=== PATIENT | female | born 1960 | race Asian ===

== ENCOUNTER → 2018-05-05 12:01 | Outpatient (CLI) | payer OTHER, SELFPAY | DX: Z23 Encounter for immunization (principal) | CPT/HCPCS: 90471; 90686 ==

== ENCOUNTER → 2019-06-07 08:12 | Outpatient (CLI) | payer OTHER, SELFPAY | DX: Z23 Encounter for immunization (principal) | CPT/HCPCS: 90471; 90686 ==

== ENCOUNTER → 2020-02-27 09:10 | Outpatient (CLI) | payer OTHER, SELFPAY ==
--- NOTE | 2020-02-27 | DI.ECHO.S_ITS ---
[place] +---------+ [facility] +---------+ : : [address] : [address] : : : : [id number] : : : : Phone: [phone]+ Echocardiogram Report + + :Name: MELVI CASH Study Date: 02/27/2020 Height: 62 in : :[facility] Weight: 135 lb : : Gender: Female BSA: 1.6 m2 : :: 1960 Age: 59 yrs BP: 118/64 mmHg: :Reason For Study: Cardiomegaly : :Ordering Physician: WINSTON, : :ALONSO Performed By: Luisa Brown : :Referring: ALONSO FELIX : + + Interpretation Summary 1) Normal left ventricular size, thickness, wall motion, and systolic function (EF 60-65%). 2) Normal right ventricular size and function. 3) No significant valvular abnormalities. 4) No prior Echo available for comparison. Procedure: A two-dimensional transthoracic echocardiogram with color flow and Doppler was performed. The study quality was technically adequate. There is no prior echocardiogram noted for this patient. The heart rate ranged between 62-70 bpm during the study. Left Ventricle: The left ventricle is normal in size and wall thickness. The ejection fraction is estimated to be 60-65%. Left ventricular systolic function is normal without focal wall motion abnormalities. Diastolic parameters suggest probable normal left ventricular diastolic function and normal filling pressures. Right Ventricle: The right ventricle is normal in size and function. Atria: Both atria are normal in size. There is no Doppler evidence for an interatrial shunt. Mitral Valve: The mitral valve is normal in structure and function. There is trace mitral regurgitation. Aortic Valve: The aortic valve is trileaflet. The aortic valve opens well. There is no aortic valve stenosis. No aortic regurgitation is present. Tricuspid Valve: The tricuspid valve is normal in structure and function. There is mild tricuspid regurgitation. The right ventricular systolic pressure is estimated to be at least 27 mmHg based on an estimated right atrial pressure of 3 mm Hg. Pulmonic Valve: The pulmonic valve leaflets are thin and pliable; valve motion is normal. There is no pulmonic valvular regurgitation. Great Vessels: The aortic root is normal size. The ascending aorta is normal in size. The IVC is of normal diameter and collapses greater than 50% with a sniff. This suggests a low right atrial pressure of 3 mm Hg. Pericardium/ Pleura There is no pericardial effusion. There is no pleural effusion. MMode/2D Measurements & Calculations LVIDd: 4.3 cm LVOT diam: 1.9 cm LVIDs: 2.9 cm Ao root diam: 2.5 cm FS: 32.9 % asc Aorta Diam: 2.9 cm EPSS: 0.28 cm Ao Arch Diam (Prox Trans): 2.6 cm IVSd: 0.85 cm LVPWd: 0.73 cm LV valero. diameter/BSA (cm/m^2): 2.7 LV sys. diameter/BSA (cm/m^2): 1.8 LA A2 area: 15.0 cm2 RA long axis: 4.6 cm LA A4 area: 15.8 cm2 RA area: 12.8 cm2 LA length (vol): 4.6 cm RA vol: 30.4 ml LA vol: 43.7 ml RA : 18.8 ml/m2 LA vol index: 27.0 ml/m2 IVC diam: 1.8 cm RVD1 (basal): 2.9 cm TAPSE: 2.2 cm Doppler Measurements & Calculations Ao V2 max: 135.3 cm/sec LVOT Max Kane: 121.5 cm/sec Ao V2 mean: 93.3 cm/sec LV V1 max P.9 mmHg Ao max P.3 mmHg LV V1 VTI: 26.9 cm Ao mean P.0 mmHg JOEL(I,D): 2.6 cm2 Ao V2 VTI: 30.2 cm JOEL(V,D): 2.6 cm2 sev ratio: 0.89 JOEL indexed to BSA (cm^2/m^2): 1.6 MV E max kane: 97.2 cm/sec TR max kane: 245.9 cm/sec MV A max kane: 65.6 cm/sec TR max P.2 mmHg MV E/A: 1.5 PA V2 max: 81.0 cm/sec Med Peak E' Kane: 10.8 cm/sec PA V2 mean: 50.1 cm/sec E/E' med: 9.0 PA mean P.2 mmHg Lat Peak E' Kane: 9.4 cm/sec PA pr(Accel): 5.4 mmHg E/E' lat: 10.4 E/e' average: 9.7 MV dec time: 0.17 sec SV(LVOT): 79.3 ml Reading Physician:06:13 PM
--- NOTE | 2020-02-27 09:59 | DI.CT.S_ITS ---
PROCEDURE: CT CHEST WO CON INDICATIONS: Cardiomegaly TECHNIQUE: Noncontrast 5 mm thick sections acquired from the pulmonary apices to the posterior costophrenic angles. 1 mm lung window, 5 mm thick coronal and sagittal and 7 mm axial MIP reformats were then acquired. For radiation dose reduction, the following was used: automated exposure control, adjustment of mA and/or kV according to patient size. COMPARISON: [facility], ECHO DOPPLER COMPLETE, 02/27/2020, 9:21. FINDINGS: Image quality: Excellent. Lungs and pleura: Subpleural scars or atelectasis in right middle lobe and lingula. No acute air space opacities. No pleural effusions or pneumothorax. Central and peripheral airways are patent and normal in caliber. Mediastinum: Heart size is normal. No pericardial effusion. No mediastinal adenopathy by size criteria. Thoracic aorta and central pulmonary arteries are normal in size. Esophagus is normal in caliber. No hiatal hernia. Bones and chest wall: No suspicious bony lesions. No vertebral body compression fractures. No axillary or supraclavicular adenopathy by size criteria. Thyroid gland is normal. Abdomen: Visualized upper abdominal solid organs and bowel loops appear normal in the absence of contrast. IMPRESSION: 1. No acute abnormalities are seen on noncontrast enhanced CT of the chest. 2. Heart size is normal. 3. Right middle lobe and lingular scars and atelectasis. Dictated by: Laura Tolbert M.D. on 02/27/2020 at 11:50 Approved by: Laura Tolbert M.D. on 02/28/2020 at 9:06
== END ==
PROVIDERS: PCP Family Medicine; Referring Provider Internal Medicine Cardiovascular Disease; Visit Provider Internal Medicine Cardiovascular Disease
DX: I51.7 Cardiomegaly (principal); I07.1 Rheumatic tricuspid insufficiency; R22.2 Localized swelling, mass and lump, trunk; J98.4 Other disorders of lung; J98.11 Atelectasis
CPT/HCPCS: 71250; 93306

== ENCOUNTER → 2020-06-18 | Outpatient (CLI) | payer OTHER, SELFPAY | PROVIDERS: PCP Family Medicine; Referring Provider Internal Medicine; Visit Provider Internal Medicine | DX: Z23 Encounter for immunization (principal) | CPT/HCPCS: 90471; 90686 ==

== ENCOUNTER → 2020-06-20 16:53 | Outpatient (CLI) | payer OTHER, SELFPAY ==
--- NOTE | 2020-06-20 | DI.MG.S_ITS ---
BILATERAL DIGITAL SCREENING MAMMOGRAM 3D/2D WITH CAD: 06/20/2020 CLINICAL: Routine screening. Family history of breast cancer. Comparison is made to exams dated: 01/20/2019 mammogram, 11/16/2018 mammogram, and 01/10/2015 mammogram - [facility]. The tissue of both breasts is heterogeneously dense. This may lower the sensitivity of mammography. Current study was also evaluated with a Computer Aided Detection (CAD) system. There is a biopsy clip in the left breast. No significant masses, calcifications, or other findings are seen in either breast. There has been no significant interval change. IMPRESSION: NEGATIVE There is no mammographic evidence of malignancy. A 1 year screening mammogram is recommended. This exam was interpreted at Station ID: [id number]. NOTE: For mammograms, a report in lay terms will be sent to the patient. Approximately 15% of breast malignancies will not be visualized mammographically. In the management of a palpable breast mass, a negative mammogram must not discourage biopsy of a clinically suspicious lesion. Electronically Signed By: Eloy barraza/bc:06/21/2020 07:49:13 letter sent: Normal Exam ACR BI-RADS Category 1: Negative 3341F
== END ==
PROVIDERS: PCP Family Medicine; Referring Provider Family Medicine; Visit Provider Family Medicine
DX: Z12.31 Encounter for screening mammogram for malignant neoplasm of breast (principal)
CPT/HCPCS: 77063; 77067

== ENCOUNTER → 2020-08-08 14:35 | Outpatient (CLI) | payer OTHER, SELFPAY ==
[2020-08-08] MEDS: COVID-19 VACC(MODERNA-1)/PF 100 MCG/0.5 ML VIAL IM (14:41)
== END ==
PROVIDERS: PCP Family Medicine; Visit Provider Internal Medicine
DX: Z23 Encounter for immunization (principal)
CPT/HCPCS: 0011A; 91301

== ENCOUNTER → 2020-09-04 12:15 | Outpatient (CLI) | payer OTHER, SELFPAY ==
[2020-09-04] MEDS: COVID-19 VACC #2, MRNA(MOD) 100 MCG/0.5 ML VIAL IM (12:20)
== END ==
PROVIDERS: PCP Family Medicine; Visit Provider Internal Medicine
DX: Z23 Encounter for immunization (principal)
CPT/HCPCS: 0012A; 91301

== ENCOUNTER → 2021-07-01 15:13 | Outpatient (CLI) | payer OTHER, SELFPAY ==
--- NOTE | 2021-07-01 15:14 | DI.MG.S_ITS ---
BILATERAL DIGITAL SCREENING MAMMOGRAM 3D/2D WITH CAD: 07/01/2021 CLINICAL: Routine screening. Family history of breast cancer. Comparison is made to exams dated: 06/20/2020 mammogram - [facility], 01/20/2019 mammogram, and 11/16/2018 mammogram - [facility]. The tissue of both breasts is heterogeneously dense. This may lower the sensitivity of mammography. Current study was also evaluated with a Computer Aided Detection (CAD) system. There is a biopsy clip in the left breast. No significant masses, calcifications, or other findings are seen in either breast. There has been no significant interval change. IMPRESSION: NEGATIVE There is no mammographic evidence of malignancy. A 1 year screening mammogram is recommended. This exam was interpreted at Station ID: [id number]. NOTE: For mammograms, a report in lay terms will be sent to the patient. Approximately 15% of breast malignancies will not be visualized mammographically. In the management of a palpable breast mass, a negative mammogram must not discourage biopsy of a clinically suspicious lesion. Electronically Signed By: Hayden fu/bc:07/02/2021 09:33:20 letter sent: Normal Exam ACR BI-RADS Category 1: Negative 3341F
== END ==
PROVIDERS: PCP Family Medicine; Referring Provider Family Medicine; Visit Provider Family Medicine
DX: Z12.31 Encounter for screening mammogram for malignant neoplasm of breast (principal); Z80.3 Family history of malignant neoplasm of breast
CPT/HCPCS: 77063; 77067

== ENCOUNTER → 2021-07-03 13:30 | Outpatient (CLI) | payer OTHER, SELFPAY | PROVIDERS: PCP Family Medicine; Referring Provider Internal Medicine; Visit Provider Internal Medicine | DX: Z23 Encounter for immunization (principal) | CPT/HCPCS: 90471; 90686 ==

== ENCOUNTER → 2022-04-24 15:30 | Outpatient (CLI) | payer OTHER, SELFPAY | PROVIDERS: PCP Family Medicine; Visit Provider Nurse Practitioner Family | DX: J02.9 Acute pharyngitis, unspecified (principal) | CPT/HCPCS: 87070 ==

== ENCOUNTER 2022-04-26 03:50 | Inpatient (IN) | payer OTHER, SELFPAY ==
[2022-04-26] VITALS (60 sets, daily range): BP systolic 70–201; BP diastolic 45–126; PULSE 65–130; RESP 13–49; TEMP 36.7–37.8; O2SAT 92–100; BMI 23.8; BMI 24.3
--- NOTE | 2022-04-26 04:09 | DI.CT.S_ITS ---
PROCEDURE: CT SOFT TISSUE NECK W CON INDICATIONS: swelling throat/tongue TECHNIQUE: After the administration of intravenous contrast, 3.0 mm axial sections acquired from the sella to the aortic arch. Additional oblique axial 3.0 mm sections acquired through the pharynx. 3 mm thick coronal and sagittal reformats were generated. For radiation dose reduction, the following was used: automated exposure control. COMPARISON: None. FINDINGS: Image quality: Excellent. Lymph nodes: Borderline prominent lymph nodes are seen, which are more prominent on the left than on the right. The largest solitary lymph node is seen on the left at level 2A and measures 12 x 8 mm. Vessels: Visualized vasculature appears patent. Neck spaces: A there is prominent swelling of the left oropharynx, which is centered within the left peritonsillar region. Several locules of fluid can be seen, with the largest measuring up to 3 cm. There is airway narrowing. There is effacement of the left piriform sinus. Generalized mucosal swelling can be seen within the pharynx. Glands: The parotid and submandibular glands appear normal. Thyroid gland is not definitely seen. Miscellaneous: Visualized brain and orbits appear normal. Lung apices appear clear. Superficial soft tissues appear normal. Bones: No suspicious bony lesions. Visualized sinuses and mastoids appear unremarkable. IMPRESSION: Complex left pharyngeal abscess, which is centered within the left peritonsillar region. The largest locule measures 3 cm. Generalized mucosal swelling can be seen. Thyroid not well seen. Please correlate with prior treatment history. Note: No significant discrepancy from the preliminary report. Dictated by: Christian Winn M.D. on 04/26/2022 at 7:24 Approved by: Christian Winn M.D. on 04/26/2022 at 7:33
--- NOTE | 2022-04-26 04:12 | ED.GENADULT ---
HPI - General Adult <Reena Ross DO - Last Filed: 04/27/22 05:44> General Chief complaint: Upper Respiratory Symptoms Stated complaint: swollen tongue/tonsils Time Seen by Provider: 04/26/22 04:04 Source: patient Mode of arrival: Ambulatory Limitations: no limitations History of Present Illness HPI narrative: This is a 62-year-old female with history of dyslipidemia and hypothyroidism with complaint of swelling of her tongue and throat starting WednesdayApril 22 and slowly progressing and getting significantly worse Wednesday and into Wednesday. Patient states her voice became muffled on Wednesday. She denies fevers or chills, she has had difficulty swallowing her secretions, patient states she has swelling of the tongue as well as the back of her oropharynx she does not feel tight lower in the throat. She denies pain. She has not had any vomiting but has had nausea, no chest pain or shortness of breath currently. Patient states that she had a similar episode happen in her teens she was given antibiotics and improved. She states it was not quite as bad as this she does not recall what it was called. She denies any recent surgeries. She is allergic to cephalexin. She denies any new medications, no new exposures or known food or environmental allergies. She is accompanied by her spouse. Related Data Home Medications Medication Instructions Recorded Confirmed conjugated estrogens 0.625 mg/gram 1 applic vaginal Q3D 04/26/22 04/26/22 vaginal cream (Premarin) fluticasone propionate 50 1 spray intranasal DAILY PRN 04/26/22 04/26/22 mcg/actuation nasal Congestion spray,suspension levothyroxine 88 mcg tablet 88 mcg PO DAILY 04/26/22 04/26/22 (Synthroid) loratadine 10 mg tablet 10 mg PO DAILY 04/26/22 04/26/22 rosuvastatin 5 mg tablet 5 mg PO DAILY 04/26/22 04/26/22 Allergies Allergy/AdvReac Type Severity Reaction Status Date / Time cephalexin [From Keflex] AdvReac Mild Verified 04/24/22 15:32 Review of Systems <Reena Ross DO - Last Filed: 04/27/22 05:44> Review of Systems ROS Unobtainable: All systems reviewed & are unremarkable except as noted in HPI and below Patient History <Reena Ross DO - Last Filed: 04/27/22 05:44> Social History household members: spouse Smoking Status: Never smoker alcohol intake: current Smoking Status: Never smoker alcohol intake frequency: 0-2 drinks per day Substance Use Type: does not use Exam <Reena Ross DO - Last Filed: 04/27/22 05:44> Narrative Exam Narrative: GEN: well nourished, well appearing female, alert and oriented x 3, patient appears to be in [id number] distress. HEENT: Atraumatic, pupils are equal round reactive to light, extraocular movements are intact, nares are clear, TMs are clear with no fluid, there is no conjunctival pallor. Patient has swelling of posterior oropharynx difficult to visualize her uvula but appears midline, slightly muffled voice and swelling of the tongue, no lip facial swelling otherwise. Normal range of motion neck. HEART: Regular rate and rhythm without murmur, clicks, rubs. No carotid bruits, pulses are equal in upper and lower extremities LUNGS:Lungs clear to auscultation, no wheezes, rales, crackles, chest moves symmetrically ABD:bowel sounds normal, soft, non-tender, no guarding, rebound, rigidity, no masses noted, no hepatosplenomegaly :No CVA tenderness MSCL: Non-tender, no muscle atrophy, muscles strength 5/5 upper and lower extremities, full range of motion, normal gait NEURO:CN 2-12 intact, sensation normal SKIN: No rash, erythema or other skin changes Initial Vital Signs Initial Vital Signs: Vital Signs Temperature 100.1 F H 04/26/22 03:55 Pulse Rate 114 H 04/26/22 03:55 Respiratory Rate 20 04/26/22 03:55 Blood Pressure 152/68 H 04/26/22 03:55 Pulse Oximetry 100 04/26/22 03:55 Oxygen Delivery Method 04/26/22 03:55 <Khloe Mi MD - Last Filed: 04/26/22 18:54> Initial Vital Signs Initial Vital Signs: Vital Signs Temperature 100.1 F H 04/26/22 03:55 Pulse Rate 114 H 04/26/22 03:55 Respiratory Rate 20 04/26/22 03:55 Blood Pressure 152/68 H 04/26/22 03:55 Pulse Oximetry 100 04/26/22 03:55 Oxygen Delivery Method 04/26/22 03:55 Course <Reena Ross, DO - Last Filed: 04/27/22 05:44> Orders Ordered: Chlorhexidine Gluconate (Chlorhexidine Gluconate 15 Ml Cup) 15 ml PO Q6HR BHARATI Last Admin: 04/27/22 00:00 Dose: 15 ml Documented By: Admin: 04/26/22 19:55 Dose: 15 ml Documented By: RF Chlorhexidine Gluconate (Chlorhexidine Gluconate 15 Ml Cup) 15 ml PO Q6HR BHARATI Famotidine (Famotidine 20 Mg/2 Ml Vial) 20 mg IV BID BHARATI Last Admin: 04/26/22 21:16 Dose: 20 mg Documented By: RF Heparin Sodium (Porcine) (Heparin 5,000 Unit/Ml Vial) 5,000 unit SUBCUT BID BHARATI Last Admin: 04/26/22 21:16 Dose: 5,000 unit Documented By: RF Hydromorphone HCl (Hydromorphone 0.5 Mg Inj) 0.5 mg IV Q15MIN PRN PRN Reason: Pain, Last Admin: 04/26/22 08:17 Dose: 0.5 mg Documented By: LAINA Propofol (Propofol) 1,000 mg in 100 mls @ 1.769 mls/hr IV TITRATE BHARATI; Protocol Last Titration: 04/27/22 03:03 Dose: 10 mcg/kg/min, 3.538 mls/hr Documented By: Titration: 04/26/22 20:00 Dose: 5 mcg/kg/min, 1.769 mls/hr Documented By: Titration: 04/26/22 16:52 Dose: 20 mcg/kg/min, 7.076 mls/hr Documented By: Admin: 04/26/22 16:49 Dose: 5 mcg/kg/min, 1.769 mls/hr Documented By: CW Fentanyl 1,000 mcg/ Dextrose 250 mls @ 10.319 mls/hr IV TITRATE BHARATI; Protocol Last Titration: 04/26/22 20:00 Dose: 0.5 mcg/kg/hr, 7.371 mls/hr Documented By: Admin: 04/26/22 16:55 Dose: 0.7 mcg/kg/hr, 10.319 mls/hr Documented By: BYRON Clindamycin Phosphate (Cleocin) 900 mg in 50 mls @ 50 mls/hr IV Q8H [facility] Last Infusion: 04/27/22 01:00 Dose: 0 mls/hr Documented By: Admin: 04/27/22 00:00 Dose: 50 mls/hr Documented By: Infusion: 04/26/22 19:00 Dose: 0 mls/hr Documented By: Admin: 04/26/22 17:42 Dose: 50 mls/hr Documented By: BYRON Meropenem 2 gm/ Sodium (Chloride) 100 mls @ 200 mls/hr IV Q8H [facility] Last Infusion: 04/27/22 00:51 Dose: 0 mls/hr Documented By: Admin: 04/27/22 00:21 Dose: 200 mls/hr Documented By: Infusion: 04/26/22 17:33 Dose: 200 mls/hr Documented By: Admin: 04/26/22 17:03 Dose: 200 mls/hr Documented By: BYRON Dexamethasone 20 mg/ Sodium (Chloride) 52 mls @ 208 mls/hr IV DAILY [facility] Daptomycin 480 mg/ Sodium (Chloride) 50 mls @ 100 mls/hr IV Q24H [facility] Last Admin: 04/26/22 21:50 Dose: 100 mls/hr Documented By: PAZ POTASSIUM CHLORIDE IN WATER (Potassium Cl 10 Meq/100 Ml Elvira) 10 meq in 100 mls @ 100 mls/hr IV Q1H [facility] Stop: 04/27/22 07:59 Last Admin: 04/27/22 05:10 Dose: 100 mls/hr Documented By: Infusion: 04/27/22 05:08 Dose: 100 mls/hr Documented By: Admin: 04/27/22 04:08 Dose: 100 mls/hr Documented By: PAZ Naloxone HCl (Naloxone 0.4 Mg/Ml Vial) 0.1 mg IV Q2MIN PRN PRN Reason: Opiate Reversal Discontinued Medications Dexamethasone (Dexamethasone 10 Mg/Ml Vial) 10 mg IV NOW ONE Stop: 04/26/22 04:10 Last Admin: 04/26/22 04:17 Dose: 10 mg Documented By: ANA Dexamethasone (Dexamethasone 10 Mg/Ml Vial) 10 mg IV NOW ONE Stop: 04/26/22 06:16 Last Admin: 04/26/22 06:20 Dose: 10 mg Documented By: JAN Diphenhydramine HCl (Diphenhydramine 50 Mg/Ml Vial) 25 mg IV NOW ONE Stop: 04/26/22 04:53 Last Admin: 04/26/22 04:55 Dose: 25 mg Documented By: JAN Epinephrine (Racepinephrine 0.5 Ml Neb) 0.5 ml INH NOW ONE Stop: 04/26/22 05:29 Last Admin: 04/26/22 05:30 Dose: 0.5 ml Documented By: KENIA Epinephrine HCl (Epinephrine 1 Mg/Ml) 0.5 mg IM NOW ONE Stop: 04/26/22 04:19 Last Admin: 04/26/22 04:25 Dose: 0.5 mg Documented By: SELINA Clindamycin Phosphate (Cleocin) 900 mg in 50 mls @ 50 mls/hr IV NOW ONE Stop: 04/26/22 05:11 Last Infusion: 04/26/22 05:47 Dose: 0 mls/hr Documented By: Admin: 04/26/22 04:18 Dose: 50 mls/hr Documented By: ANA Sodium Chloride (Normal Saline 0.9%) 1,000 mls @ 1,000 mls/hr IV BOLUS ONE Stop: 04/26/22 05:11 Last Infusion: 04/26/22 06:35 Dose: 0 mls/hr Documented By: Admin: 04/26/22 04:17 Dose: 1,000 mls/hr Documented By: ANA Sodium Chloride (Normal Saline 0.9%) 1,000 mls @ 1,000 mls/hr IV BOLUS ONE Stop: 04/26/22 05:41 Last Infusion: 04/26/22 07:58 Dose: 0 mls/hr Documented By: Admin: 04/26/22 06:21 Dose: 1,000 mls/hr Documented By: JAN Meropenem 500 mg/ Sodium (Chloride) 100 mls @ 200 mls/hr IV NOW ONE Stop: 04/26/22 07:17 Last Infusion: 04/26/22 08:30 Dose: 0 mls/hr Documented By: Admin: 04/26/22 07:59 Dose: 200 mls/hr Documented By: LAINA Sodium Chloride (Normal Saline 0.9%) 1,000 mls @ 150 mls/hr IV BOLUS ONE Stop: 04/26/22 14:30 Last Infusion: 04/26/22 14:46 Dose: 0 mls/hr Documented By: Admin: 04/26/22 07:59 Dose: 150 mls/hr Documented By: RLS Lactated Ringer's (Lactated Ringers) 1,000 mls @ 75 mls/hr IV CONT BHARATI Stop: 04/27/22 04:44 Last Admin: 04/26/22 20:53 Dose: 75 mls/hr Documented By: Infusion: 04/26/22 20:53 Dose: 75 mls/hr Documented By: Admin: 04/26/22 16:57 Dose: 75 mls/hr Documented By: BYRON Sodium Chloride (Normal Saline 0.9%) 1,000 mls @ 1,000 mls/hr IV BOLUS ONE Stop: 04/26/22 20:50 Last Infusion: 04/26/22 21:17 Dose: 0 mls/hr Documented By: Admin: 04/26/22 19:55 Dose: 1,000 mls/hr Documented By: RF Lactated Ringer's (Lactated Ringers) 1,000 mls @ 1,000 mls/hr IV BOLUS ONE Stop: 04/27/22 02:34 Last Infusion: 04/27/22 02:40 Dose: 0 mls/hr Documented By: Admin: 04/27/22 01:40 Dose: 1,000 mls/hr Documented By: RF Lidocaine/Epinephrine (Lidocaine 2% W/Epi Inj) 5 ml INJ NOW ONE Stop: 04/26/22 16:07 Last Admin: 04/26/22 16:07 Dose: 5 ml Documented By: GLENN Methylprednisolone (Methylprednisolone 125 Mg/2 Ml Vial) 125 mg IV NOW ONE Stop: 04/27/22 01:38 Last Admin: 04/27/22 01:44 Dose: 125 mg Documented By: RF Ondansetron HCl (Ondansetron 4 Mg/2 Ml Inj) 4 mg IV NOW ONE Stop: 04/26/22 08:21 Last Admin: 04/26/22 08:23 Dose: 4 mg Documented By: LAINA Reevaluation(s) Reevaluation #1: Recheck, patient states no worsening but not significantly improved. Reviewed prelim findings for CT and aware she may require intubation and dependent on findings potentially transfer. is at bedside. Consultations Consultation #1: Dr. Roberto Figueredo, ENT, recommends 20mg dexamethasone total given. Observation unless rapid improvement and worsening intubation. He asks to be recontacted if staying in hospital. Ct pending still but obvious swelling and airway impingement discussed. Discussed I do not plan to discharge patient home today. Time: 06:02 Consultation #2: Recontacted Dr. Figueredo, with ENT results. Multi loculated peritonsillar abscess on night read extending from nasopharynx to the vallecula with airway impingement on the left. Discussed patient is not handling secretions and although moment stable is high risk for decompensation plan for admission and ENT is consulted. Time: 06:40 Vital Signs Vital signs: Vital Signs - 8 hr 04/26/22 11:00 04/26/22 11:00 04/26/22 11:30 Pulse Rate 103 H Respiratory Rate 23 Blood Pressure 125/59 L 115/56 L Pulse Oximetry 96 Oxygen Delivery Method Room Air 04/26/22 11:30 04/26/22 12:00 04/26/22 12:00 Pulse Rate 96 H 97 H Respiratory Rate 14 13 Blood Pressure 112/58 L Pulse Oximetry 94 92 Oxygen Delivery Method Room Air Room Air 04/26/22 12:30 04/26/22 12:30 04/26/22 13:00 Pulse Rate 104 H Respiratory Rate 25 H Blood Pressure 137/61 126/61 Pulse Oximetry 97 Oxygen Delivery Method Room Air 04/26/22 13:00 04/26/22 13:07 04/26/22 13:12 Pulse Rate 108 H 110 H Respiratory Rate 33 H 41 H Blood Pressure 134/63 Pulse Oximetry 96 96 Oxygen Delivery Method Room Air 04/26/22 13:12 04/26/22 13:30 04/26/22 13:30 Pulse Rate 112 H 105 H Respiratory Rate 30 H 33 H Blood Pressure 120/59 L Pulse Oximetry 97 97 Oxygen Delivery Method 04/26/22 14:00 04/26/22 14:00 04/26/22 14:30 Pulse Rate 101 H 109 H Respiratory Rate 26 H 49 H Blood Pressure 112/64 Pulse Oximetry 92 Oxygen Delivery Method Room Air 04/26/22 14:31 04/26/22 14:31 Pulse Rate 107 H Respiratory Rate 35 H Blood Pressure 106/64 Pulse Oximetry Oxygen Delivery Method <Khloe Mi MD - Last Filed: 04/26/22 18:54> Orders Ordered: Chlorhexidine Gluconate (Chlorhexidine Gluconate 15 Ml Cup) 15 ml PO Q6HR [facility]ARATI Last Admin: 04/27/22 00:00 Dose: 15 ml Documented By: Admin: 04/26/22 19:55 Dose: 15 ml Documented By: RF Chlorhexidine Gluconate (Chlorhexidine Gluconate 15 Ml Cup) 15 ml PO Q6HR [facility] Famotidine (Famotidine 20 Mg/2 Ml Vial) 20 mg IV BID BHARATI Last Admin: 04/26/22 21:16 Dose: 20 mg Documented By: RF Heparin Sodium (Porcine) (Heparin 5,000 Unit/Ml Vial) 5,000 unit SUBCUT BID BHARATI Last Admin: 04/26/22 21:16 Dose: 5,000 unit Documented By: RF Hydromorphone HCl (Hydromorphone 0.5 Mg Inj) 0.5 mg IV Q15MIN PRN PRN Reason: Pain, Last Admin: 04/26/22 08:17 Dose: 0.5 mg Documented By: LAINA Propofol (Propofol) 1,000 mg in 100 mls @ 1.769 mls/hr IV TITRATE BHARATI; Protocol Last Titration: 04/27/22 03:03 Dose: 10 mcg/kg/min, 3.538 mls/hr Documented By: Titration: 04/26/22 20:00 Dose: 5 mcg/kg/min, 1.769 mls/hr Documented By: Titration: 04/26/22 16:52 Dose: 20 mcg/kg/min, 7.076 mls/hr Documented By: Admin: 04/26/22 16:49 Dose: 5 mcg/kg/min, 1.769 mls/hr Documented By: BYRON Fentanyl 1,000 mcg/ Dextrose 250 mls @ 10.319 mls/hr IV TITRATE BHARATI; Protocol Last Titration: 04/26/22 20:00 Dose: 0.5 mcg/kg/hr, 7.371 mls/hr Documented By: Admin: 04/26/22 16:55 Dose: 0.7 mcg/kg/hr, 10.319 mls/hr Documented By: BYRON Clindamycin Phosphate (Cleocin) 900 mg in 50 mls @ 50 mls/hr IV Q8H [facility] Last Infusion: 04/27/22 01:00 Dose: 0 mls/hr Documented By: Admin: 04/27/22 00:00 Dose: 50 mls/hr Documented By: Infusion: 04/26/22 19:00 Dose: 0 mls/hr Documented By: Admin: 04/26/22 17:42 Dose: 50 mls/hr Documented By: BYRON Meropenem 2 gm/ Sodium (Chloride) 100 mls @ 200 mls/hr IV Q8H [facility] Last Infusion: 04/27/22 00:51 Dose: 0 mls/hr Documented By: Admin: 04/27/22 00:21 Dose: 200 mls/hr Documented By: Infusion: 04/26/22 17:33 Dose: 200 mls/hr Documented By: Admin: 04/26/22 17:03 Dose: 200 mls/hr Documented By: BYRON Dexamethasone 20 mg/ Sodium (Chloride) 52 mls @ 208 mls/hr IV DAILY [facility] Daptomycin 480 mg/ Sodium (Chloride) 50 mls @ 100 mls/hr IV Q24H [facility] Last Admin: 04/26/22 21:50 Dose: 100 mls/hr Documented By: PAZ POTASSIUM CHLORIDE IN WATER (Potassium Cl 10 Meq/100 Ml Elvira) 10 meq in 100 mls @ 100 mls/hr IV Q1H [facility] Stop: 04/27/22 07:59 Last Admin: 04/27/22 05:10 Dose: 100 mls/hr Documented By: Infusion: 04/27/22 05:08 Dose: 100 mls/hr Documented By: Admin: 04/27/22 04:08 Dose: 100 mls/hr Documented By: PAZ Naloxone HCl (Naloxone 0.4 Mg/Ml Vial) 0.1 mg IV Q2MIN PRN PRN Reason: Opiate Reversal Discontinued Medications Dexamethasone (Dexamethasone 10 Mg/Ml Vial) 10 mg IV NOW ONE Stop: 04/26/22 04:10 Last Admin: 04/26/22 04:17 Dose: 10 mg Documented By: ANA Dexamethasone (Dexamethasone 10 Mg/Ml Vial) 10 mg IV NOW ONE Stop: 04/26/22 06:16 Last Admin: 04/26/22 06:20 Dose: 10 mg Documented By: JAN Diphenhydramine HCl (Diphenhydramine 50 Mg/Ml Vial) 25 mg IV NOW ONE Stop: 04/26/22 04:53 Last Admin: 04/26/22 04:55 Dose: 25 mg Documented By: JAN Epinephrine (Racepinephrine 0.5 Ml Neb) 0.5 ml INH NOW ONE Stop: 04/26/22 05:29 Last Admin: 04/26/22 05:30 Dose: 0.5 ml Documented By: KENIA Epinephrine HCl (Epinephrine 1 Mg/Ml) 0.5 mg IM NOW ONE Stop: 04/26/22 04:19 Last Admin: 04/26/22 04:25 Dose: 0.5 mg Documented By: SELINA Clindamycin Phosphate (Cleocin) 900 mg in 50 mls @ 50 mls/hr IV NOW ONE Stop: 04/26/22 05:11 Last Infusion: 04/26/22 05:47 Dose: 0 mls/hr Documented By: Admin: 04/26/22 04:18 Dose: 50 mls/hr Documented By: ANA Sodium Chloride (Normal Saline 0.9%) 1,000 mls @ 1,000 mls/hr IV BOLUS ONE Stop: 04/26/22 05:11 Last Infusion: 04/26/22 06:35 Dose: 0 mls/hr Documented By: Admin: 04/26/22 04:17 Dose: 1,000 mls/hr Documented By: ANA Sodium Chloride (Normal Saline 0.9%) 1,000 mls @ 1,000 mls/hr IV BOLUS ONE Stop: 04/26/22 05:41 Last Infusion: 04/26/22 07:58 Dose: 0 mls/hr Documented By: Admin: 04/26/22 06:21 Dose: 1,000 mls/hr Documented By: JAN Meropenem 500 mg/ Sodium (Chloride) 100 mls @ 200 mls/hr IV NOW ONE Stop: 04/26/22 07:17 Last Infusion: 04/26/22 08:30 Dose: 0 mls/hr Documented By: Admin: 04/26/22 07:59 Dose: 200 mls/hr Documented By: LAINA Sodium Chloride (Normal Saline 0.9%) 1,000 mls @ 150 mls/hr IV BOLUS ONE Stop: 04/26/22 14:30 Last Infusion: 04/26/22 14:46 Dose: 0 mls/hr Documented By: Admin: 04/26/22 07:59 Dose: 150 mls/hr Documented By: LAINA Lactated Ringer's (Lactated Ringers) 1,000 mls @ 75 mls/hr IV CONT BHARATI Stop: 04/27/22 04:44 Last Admin: 04/26/22 20:53 Dose: 75 mls/hr Documented By: Infusion: 04/26/22 20:53 Dose: 75 mls/hr Documented By: Admin: 04/26/22 16:57 Dose: 75 mls/hr Documented By: BYRON Sodium Chloride (Normal Saline 0.9%) 1,000 mls @ 1,000 mls/hr IV BOLUS ONE Stop: 04/26/22 20:50 Last Infusion: 04/26/22 21:17 Dose: 0 mls/hr Documented By: Admin: 04/26/22 19:55 Dose: 1,000 mls/hr Documented By: PAZ Lactated Ringer's (Lactated Ringers) 1,000 mls @ 1,000 mls/hr IV BOLUS ONE Stop: 04/27/22 02:34 Last Infusion: 04/27/22 02:40 Dose: 0 mls/hr Documented By: Admin: 04/27/22 01:40 Dose: 1,000 mls/hr Documented By: PAZ Lidocaine/Epinephrine (Lidocaine 2% W/Epi Inj) 5 ml INJ NOW ONE Stop: 04/26/22 16:07 Last Admin: 04/26/22 16:07 Dose: 5 ml Documented By: GLENN Methylprednisolone (Methylprednisolone 125 Mg/2 Ml Vial) 125 mg IV NOW ONE Stop: 04/27/22 01:38 Last Admin: 04/27/22 01:44 Dose: 125 mg Documented By: PAZ Ondansetron HCl (Ondansetron 4 Mg/2 Ml Inj) 4 mg IV NOW ONE Stop: 04/26/22 08:21 Last Admin: 04/26/22 08:23 Dose: 4 mg Documented By: LAINA Vital Signs Vital signs: Vital Signs - 8 hr 04/26/22 11:00 04/26/22 11:00 04/26/22 11:30 Pulse Rate 103 H Respiratory Rate 23 Blood Pressure 125/59 L 115/56 L Pulse Oximetry 96 Oxygen Delivery Method Room Air 04/26/22 11:30 04/26/22 12:00 04/26/22 12:00 Pulse Rate 96 H 97 H Respiratory Rate 14 13 Blood Pressure 112/58 L Pulse Oximetry 94 92 Oxygen Delivery Method Room Air Room Air 04/26/22 12:30 04/26/22 12:30 04/26/22 13:00 Pulse Rate 104 H Respiratory Rate 25 H Blood Pressure 137/61 126/61 Pulse Oximetry 97 Oxygen Delivery Method Room Air 04/26/22 13:00 04/26/22 13:07 04/26/22 13:12 Pulse Rate 108 H 110 H Respiratory Rate 33 H 41 H Blood Pressure 134/63 Pulse Oximetry 96 96 Oxygen Delivery Method Room Air 04/26/22 13:12 04/26/22 13:30 04/26/22 13:30 Pulse Rate 112 H 105 H Respiratory Rate 30 H 33 H Blood Pressure 120/59 L Pulse Oximetry 97 97 Oxygen Delivery Method 04/26/22 14:00 04/26/22 14:00 04/26/22 14:30 Pulse Rate 101 H 109 H Respiratory Rate 26 H 49 H Blood Pressure 112/64 Pulse Oximetry 92 Oxygen Delivery Method Room Air 04/26/22 14:31 04/26/22 14:31 Pulse Rate 107 H Respiratory Rate 35 H Blood Pressure 106/64 Pulse Oximetry Oxygen Delivery Method Medical Decision Making <Reena Ross, DO - Last Filed: 04/27/22 05:44> Lab Data Result diagrams: 04/27/22 02:56 04/27/22 02:56 Labs: Lab Results 04/26/22 04/26/22 04/26/22 Range/Units 04:00 04:08 04:08 WBC 21.3 H (4.5-11.0) X10^3/uL RBC 4.16 (4.0-5.2) X10^6/uL Hgb 12.5 (12.0-16.0) g/dL Hct 36.5 (36-46) % MCV 87.9 (80-100) fL MCH 30.0 (26-34) PG MCHC 34.1 (30-36) % RDW 12.9 (11.6-14.8) % Plt Count 227 (150-400) X10^3/uL Neut % (Auto) Not Reportable Lymph % (Auto) Not Reportable [place] % (Auto) Not Reportable Eos % (Auto) Not Reportable Baso % (Auto) Not Reportable Lymph # (Auto) Not Reportable [place] # (Auto) Not Reportable Baso # (Auto) Not Reportable Total Counted 100 Seg Neutrophils % 87.0 H (38-70) % Lymphocytes % (Manual) 5.0 L (25-45) % Atypical Lymphs % 2.0 H ( - 0) % Monocytes % (Manual) 6.0 (2-11) % Neutrophils # (Manual) [id number] H (0249-5628) /uL RBC Morphology Normal morphology Sodium 126 L (137-145) mmol/L Potassium 3.8 (3.4-5.1) mmol/L Chloride 91 L (98-107) mmol/L Carbon Dioxide 24 (22-32) mmol/L BUN 6 L (7-17) mg/dL Creatinine 0.45 L (0.52-1.04) mg/dL Estimated GFR > 60 (>60) mL/min BUN/Creatinine Ratio 13.3 (6-22) Glucose 153 H (80-110) mg/dL Lactate (0.7-2.1) mmol/L Calcium 8.9 (8.4-10.2) mg/dL Total Bilirubin 1.2 (0.2-1.3) mg/dL AST 28 (14-36) IU/L ALT 33 (<35) IU/L Alkaline Phosphatase 100 (38-126) U/L Total Protein 9.0 H (6.3-8.2) g/dL Albumin 4.6 (3.5-5.0) g/dL Globulin 4.4 H (1.7-4.1) g/dL Albumin/Globulin Ratio 1.0 (1.0-2.8) Lipase 73 (23-300) U/L Procalcitonin (<0.5) ng/mL SARS-CoV-2 (PCR) Negative (Negative) 04/26/22 04/26/22 Range/Units 04:08 04:08 WBC (4.5-11.0) X10^3/uL RBC (4.0-5.2) X10^6/uL Hgb (12.0-16.0) g/dL Hct (36-46) % MCV (80-100) fL MCH (26-34) PG MCHC (30-36) % RDW (11.6-14.8) % Plt Count (150-400) X10^3/uL Neut % (Auto) Lymph % (Auto) [place] % (Auto) Eos % (Auto) Baso % (Auto) Lymph # (Auto) [place] # (Auto) Baso # (Auto) Total Counted Seg Neutrophils % (38-70) % Lymphocytes % (Manual) (25-45) % Atypical Lymphs % ( - 0) % Monocytes % (Manual) (2-11) % Neutrophils # (Manual) ([id number]) /uL RBC Morphology Sodium (137-145) mmol/L Potassium (3.4-5.1) mmol/L Chloride (98-107) mmol/L Carbon Dioxide (22-32) mmol/L BUN (7-17) mg/dL Creatinine (0.52-1.04) mg/dL Estimated GFR (>60) mL/min BUN/Creatinine Ratio (6-22) Glucose (80-110) mg/dL Lactate 1.4 (0.7-2.1) mmol/L Calcium (8.4-10.2) mg/dL Total Bilirubin (0.2-1.3) mg/dL AST (14-36) IU/L ALT (<35) IU/L Alkaline Phosphatase (38-126) U/L Total Protein (6.3-8.2) g/dL Albumin (3.5-5.0) g/dL Globulin (1.7-4.1) g/dL Albumin/Globulin Ratio (1.0-2.8) Lipase (23-300) U/L Procalcitonin 0.20 (<0.5) ng/mL SARS-CoV-2 (PCR) (Negative) ECG Data Attestation: I personally reviewed and interpreted this ECG as follows: Prior ECG tracings: not available for review Interpretation: Sinus tachycardia rate of 118 [place] 174 QRS of 98 QTC of 456. Left anterior fascicular block nonspecific ST change. No priors for comparison MDM Narrative Medical decision making narrative: This is a 62-year-old female with increasingly swelling tongue and back of her throat patient has had difficulty with her secretions. She states started Wednesday worsened over Wednesday to Wednesday and into tonight. She is muffled. She is able to lay back in the bed without significant issues but has significant changes on exam. Patient states similar situation happened in her teens and was treated with antibiotics. Steroids, IV fluids, antibiotics were given epinephrine in case there is a allergic component, patient also is not on lisinopril, SANDRA inhibitor or medication that would make angioedema highly likely. Labs do show an elevated leukocytosis, hyponatremia, lactate is appropriate. COVID swab is negative patient was able to tolerate CT and has significant swelling visualized on my own reveiw prior to report. Significant delay in receiving report after multiple calls to [facility] and on-call radiology overnight and I spoke with ENT prior to report being obtained and discussed plan for admission awaiting report and will recontact to see if this changes disposition in terms stay here or transfer. Patient has not had any significant worsening but no real improvement with interventions here. ENT did recommend adding additional 10 mg of Decadron. ENT was re-contacted and discuss that patient has what appears to be significant left multiloculated peritonsillar abscess extending from nasopharynx down with significant airway involvement. Discussed patient is going to be admitted at this time. Spoke with patient we discussed that if she does not have significant improvement in symptoms will likely end up intubated for intervention or can potentially need for emergently intubated but preferable to do anymore controlled situation. Patient signed out to Dr. Mi while awaiting to talk with hospitalist and ENT input today. 11am care was transferred to pr, patient is independently examine. Significant pharyngeal and posterior pharyngeal edema with difficulty in even visualizing the uvula because of the overall swelling and inability to open her mouth more. She is still unable to manage secretions and is using suction because she is unable to swallow. She is also having oral secretions actually coming out of the right nostril which is the easiest way for her to be removing oral secretions. My colleague spoke with our ENT in the middle of the night. He had recommended steroids antibiotics and felt that she likely would be able to go home after that. Night read of the CT scan indicated extensive left peritonsillar abscess with airway encroachment. My partner spoke with him again in her impression was that he was going to come evaluate the patient for singing the morning. I spoke with the ENT physician again this morning and his impression was that the patient was going to be fine and go home. Reviewed findings of the CT scan, over read this morning indicates consistent with a complex left pharyngeal abscess centered in the left peritonsillar region rather than a some pleural peritonsillar abscess. In light of the interpretation change from peritonsillar to pharyngeal abscess along with the fact that she was not significantly improved, still not able to manage secretions, still with hoarseness and still needing to sit completely upright to maintain her airway his recommendation was transfer to [facility] recognizing that these typically required an anterior approach and were not something that we managed locally. Will continue with scheduled antibiotics, she is on maintenance fluids she is relatively comfortable at this point and will send images and face sheet to [facility] and contact them regarding transfer. 1145 discussion with transfer center. Will contact ENT service [address] [facility]. Suggests securing airway. Will review films. 1220 Discussed with patient, along with probable transfer and urgent intubation rather than emergent intubation. Patient is agreeable 1230 discussed with on-call anesthesia asked him to evaluate the patient so that we can formulate the safest plan for intubation. [address] Carson, [facility] ENT. He felt that this was a relatively simple anterior approach after reviewing CT scans and recommended again discussing with Dr. Figueredo. 105 discussed with Anesthesiology. Certainly safest possible option would be intubation in the OR with ENT standing by. Again talked with Dr. Figueredo who will come in to evaluate the patient, standby for OR intubation and will hopefully consider surgical I and D here rather than requiring transfer. Patient was successfully intubated in the operating room. Dr. Figueredo was unable to get into the abscess cavity to drain any purulence material. He again consulted with Dr. Carson. Patient was admitted to ICU at [facility] and hospitalist service, remained intubated, continue with fluids steroids and antibiotics with repeat CT tomorrow and further evaluation. Dr. Figueredo let Dr. Guzman no of the admission and Dr. Guzman will around the morning. <Khloe Mi MD - Last Filed: 04/26/22 18:54> Lab Data Labs: Lab Results 04/26/22 04/26/22 04/26/22 Range/Units 04:00 04:08 04:08 WBC 21.3 H (4.5-11.0) X10^3/uL RBC 4.16 (4.0-5.2) X10^6/uL Hgb 12.5 (12.0-16.0) g/dL Hct 36.5 (36-46) % MCV 87.9 (80-100) fL MCH 30.0 (26-34) PG MCHC 34.1 (30-36) % RDW 12.9 (11.6-14.8) % Plt Count 227 (150-400) X10^3/uL Neut % (Auto) Not Reportable Lymph % (Auto) Not Reportable [place] % (Auto) Not Reportable Eos % (Auto) Not Reportable Baso % (Auto) Not Reportable Lymph # (Auto) Not Reportable [place] # (Auto) Not Reportable Baso # (Auto) Not Reportable Total Counted 100 Seg Neutrophils % 87.0 H (38-70) % Lymphocytes % (Manual) 5.0 L (25-45) % Atypical Lymphs % 2.0 H ( - 0) % Monocytes % (Manual) 6.0 (2-11) % Neutrophils # (Manual) 47893 H (3779-9813) /uL RBC Morphology Normal morphology Sodium 126 L (137-145) mmol/L Potassium 3.8 (3.4-5.1) mmol/L Chloride 91 L (98-107) mmol/L Carbon Dioxide 24 (22-32) mmol/L BUN 6 L (7-17) mg/dL Creatinine 0.45 L (0.52-1.04) mg/dL Estimated GFR > 60 (>60) mL/min BUN/Creatinine Ratio 13.3 (6-22) Glucose 153 H (80-110) mg/dL Lactate (0.7-2.1) mmol/L Calcium 8.9 (8.4-10.2) mg/dL Total Bilirubin 1.2 (0.2-1.3) mg/dL AST 28 (14-36) IU/L ALT 33 (<35) IU/L Alkaline Phosphatase 100 (38-126) U/L Total Protein 9.0 H (6.3-8.2) g/dL Albumin 4.6 (3.5-5.0) g/dL Globulin 4.4 H (1.7-4.1) g/dL Albumin/Globulin Ratio 1.0 (1.0-2.8) Lipase 73 (23-300) U/L Procalcitonin (<0.5) ng/mL SARS-CoV-2 (PCR) Negative (Negative) 04/26/22 04/26/22 Range/Units 04:08 04:08 WBC (4.5-11.0) X10^3/uL RBC (4.0-5.2) X10^6/uL Hgb (12.0-16.0) g/dL Hct (36-46) % MCV (80-100) fL MCH (26-34) PG MCHC (30-36) % RDW (11.6-14.8) % Plt Count (150-400) X10^3/uL Neut % (Auto) Lymph % (Auto) [place] % (Auto) Eos % (Auto) Baso % (Auto) Lymph # (Auto) [place] # (Auto) Baso # (Auto) Total Counted Seg Neutrophils % (38-70) % Lymphocytes % (Manual) (25-45) % Atypical Lymphs % ( - 0) % Monocytes % (Manual) (2-11) % Neutrophils # (Manual) (6495-8017) /uL RBC Morphology Sodium (137-145) mmol/L Potassium (3.4-5.1) mmol/L Chloride (98-107) mmol/L Carbon Dioxide (22-32) mmol/L BUN (7-17) mg/dL Creatinine (0.52-1.04) mg/dL Estimated GFR (>60) mL/min BUN/Creatinine Ratio (6-22) Glucose (80-110) mg/dL Lactate 1.4 (0.7-2.1) mmol/L Calcium (8.4-10.2) mg/dL Total Bilirubin (0.2-1.3) mg/dL AST (14-36) IU/L ALT (<35) IU/L Alkaline Phosphatase (38-126) U/L Total Protein (6.3-8.2) g/dL Albumin (3.5-5.0) g/dL Globulin (1.7-4.1) g/dL Albumin/Globulin Ratio (1.0-2.8) Lipase (23-300) U/L Procalcitonin 0.20 (<0.5) ng/mL SARS-CoV-2 (PCR) (Negative) Imaging Data soft tissue CT: Radiologist's Impression: FINDINGS:? Image quality:? Excellent.? ? Lymph nodes:? Borderline prominent lymph nodes are seen, which are more prominent on the left than on the right.? The largest solitary lymph node is seen on the left at level 2A and measures 12 x 8 mm.? ? Vessels:? Visualized vasculature appears patent.? ? Neck spaces:? A there is prominent swelling of the left oropharynx, which is centered within the left peritonsillar region.? Several locules of fluid can be seen, with the largest measuring up to 3 cm.? There is airway narrowing.? There is effacement of the left piriform sinus.? Generalized mucosal swelling can be seen within the pharynx.? ? Glands:? The parotid and submandibular glands appear normal.? Thyroid gland is not definitely seen.? ? Miscellaneous:? Visualized brain and orbits appear normal.? Lung apices appear clear.? Superficial soft tissues appear normal. ? Bones:? No suspicious bony lesions.? Visualized sinuses and mastoids appear unremarkable. ? ? ? IMPRESSION:? Complex left pharyngeal abscess, which is centered within the left peritonsillar region.? The largest locule measures 3 cm. ? Generalized mucosal swelling can be seen. ? Thyroid not well seen.? Please correlate with prior treatment history. ? ? Note: No significant discrepancy from the preliminary report. ? Dictated by: Christian Winn M.D. on 04/26/2022 at 7:24 ? ? MDM Narrative Medical decision making narrative: This is a 62-year-old female with increasingly swelling tongue and back of her throat patient has had difficulty with her secretions. She states started Wednesday worsened over Wednesday to Wednesday and into tonight. She is muffled. She is able to lay back in the bed without significant issues but has significant changes on exam. Patient states similar situation happened in her teens and was treated with antibiotics. Steroids, IV fluids, antibiotics were given epinephrine in case there is a allergic component, patient also is not on lisinopril, SANDRA inhibitor or medication that would make angioedema highly likely. Labs do show an elevated leukocytosis, hyponatremia, lactate is appropriate. COVID swab is negative patient was able to tolerate CT and has significant swelling visualized prior to report. 11am care was transferred to pr, patient is independently examine. Significant pharyngeal and posterior pharyngeal edema with difficulty in even visualizing the uvula because of the overall swelling and inability to open her mouth more. She is still unable to manage secretions and is using suction because she is unable to swallow. She is also having oral secretions actually coming out of the right nostril which is the easiest way for her to be removing oral secretions. My colleague spoke with our ENT in the middle of the night. He had recommended steroids antibiotics and felt that she likely would be able to go home after that. Night read of the CT scan indicated extensive left peritonsillar abscess with airway encroachment. My partner spoke with him again in her impression was that he was going to come evaluate the patient for singing the morning. I spoke with the ENT physician again this morning and his impression was that the patient was going to be fine and go home. Reviewed findings of the CT scan, over read this morning indicates consistent with a complex left pharyngeal abscess centered in the left peritonsillar region rather than a some pleural peritonsillar abscess. In light of the interpretation change from peritonsillar to pharyngeal abscess along with the fact that she was not significantly improved, still not able to manage secretions, still with hoarseness and still needing to sit completely upright to maintain her airway his recommendation was transfer to [facility] recognizing that these typically required an anterior approach and were not something that we managed locally. Will continue with scheduled antibiotics, she is on maintenance fluids she is relatively comfortable at this point and will send images and face sheet to [facility] and contact them regarding transfer. 1145 discussion with transfer center. Will contact ENT service [address] Dr Carson, [place] [facility]. Suggests securing airway. Will review films. 1220 Discussed with patient, along with probable transfer and urgent intubation rather than emergent intubation. Patient is agreeable 1230 discussed with on-call anesthesia asked him to evaluate the patient so that we can formulate the safest plan for intubation. [address] Carson, [facility] ENT. He felt that this was a relatively simple anterior approach after reviewing CT scans and recommended again discussing with Dr. Figueredo. 105 discussed with Anesthesiology. Certainly safest possible option would be intubation in the OR with ENT standing by. Again talked with Dr. Figueredo who will come in to evaluate the patient, standby for OR intubation and will hopefully consider surgical I and D here rather than requiring transfer. Patient was successfully intubated in the operating room. Dr. Figueredo was unable to get into the abscess cavity to drain any purulence material. He again consulted with Dr. Carson. Patient was admitted to ICU at [facility] and hospitalist service, remained intubated, continue with fluids steroids and antibiotics with repeat CT tomorrow and further evaluation. Dr. Figueredo let Dr. Guzman no of the admission and Dr. Guzman will around the morning. <Khloe Mi MD - Last Filed: 04/26/22 18:54> Critical Care Time Critical Care Time: Yes Total Critical Care Time: 69 Attestation: Critical care time is separate from other billable procedures. There is a high probability of a significant, sudden or life-threatening deterioration that requires my full and direct attention, intervention and personal management. This critical care time includes consultation with family and other consulting doctors, review of records, and interpretation of data from labs, EKGs and imaging as well as managements of acute airway compromise and retropharyngeal abscess. Discharge Plan Departure Patient Disposition: Admitted to Surgery Clinical Impression: Abscess, retropharyngeal Admit Date/Time: 04/26/22 16:05 Admit Provider: Roberto Figueredo
[2022-04-26] MEDS: SODIUM CHLORIDE 0.9% 1,000 ML 1000 ML IV ×3 (04:17→19:55)
[2022-04-26] MEDS: DEXAMETHASONE 10 MG/ML VIAL IV ×2 (04:17→06:20)
[2022-04-26] MEDS: CLINDAMYCIN 900 MG/50 ML PIGGYBACK 50 MG IV ×2 (04:18→17:42)
[2022-04-26 04:25] LABS: Hematocrit 36.5 % (36-46); Hemoglobin 12.5 g/dL (12.0-16.0); Mean Corpuscular HGB Conc 34.1 % (30-36); Mean Corpuscular Volume 87.9 fL (80-100); Platelet Count 227 X10^3/uL (150-400); Red Blood Cell Count 4.16 X10^6/uL (4.0-5.2); Red Cell Distribution Width 12.9 % (11.6-14.8); White Blood Cell Count 21.3 X10^3/uL (4.5-11.0)
[2022-04-26] MEDS: EPINEPHrine 1 MG/ML 0.5 MG IM (04:25)
[2022-04-26 04:26] LABS: Add Manual Diff / Slide Review YES
[2022-04-26 04:29] LABS: Alanine Aminotransferase 33 IU/L (<35); Albumin 4.6 g/dL (3.5-5.0); Alkaline Phosphatase 100 U/L (38-126); Aspartate Aminotransferase 28 IU/L (14-36); BUN Creatinine Ratio 13.3 (6-22); Bilirubin Total 1.2 mg/dL (0.2-1.3); Blood Urea Nitrogen 6 mg/dL (7-17); Calcium 8.9 mg/dL (8.4-10.2); Carbon Dioxide 24 mmol/L (22-32); Chloride 91 mmol/L (98-107); Estimated Glomerular Filt Rate > 60 mL/min (>60); Globulin 4.4 g/dL (1.7-4.1); Glucose 153 mg/dL (80-110); HEMOLYSIS 20 (0-50); Lipase 73 U/L (23-300); Potassium 3.8 mmol/L (3.4-5.1); Sodium 126 mmol/L (137-145)
[2022-04-26 04:30] LABS: Lactate (Lactic Acid) 1.4 mmol/L (0.7-2.1)
--- NOTE | 2022-04-26 04:35 | PC.NURSE ---
Patient on continuous rehanger, BP cuff and 02 probe. Patient given suction as she is unable to swallow secretions.
--- NOTE | 2022-04-26 04:43 | PC.NURSE ---
RT at the bedside
[2022-04-26 04:52] LABS: COVID19 -Nasal RAPID Negative (Negative)
[2022-04-26] MEDS: diphenhydrAMINE 50 MG/ML VIAL 25 MG IV (04:55)
[2022-04-26] MEDS: RACEPINEPHRINE 0.5 ML NEB INH (05:30)
--- NOTE | 2022-04-26 06:54 | PC.NURSE ---
MD at the bedside updating patient and family
[2022-04-26 06:59] LABS: Neutrophils Absolute Manual 18531 /uL (3000-5900); RBC Morphology Normal Morphology; Total Cells Counted 100
[2022-04-26] MEDS: SODIUM CHLORIDE 0.9% 1,000 ML 150 ML IV (07:59)
[2022-04-26] MEDS: MEROPENEM 500 MG in SODIUM CHLORIDE 0.9% 100 ML 200 MG IV (07:59)
[2022-04-26] MEDS: HYDROMORPHONE 0.5 MG INJ IV (08:17)
[2022-04-26] MEDS: ONDANSETRON 4 MG/2 ML INJ IV (08:23)
--- NOTE | 2022-04-26 10:29 | PC.NURSE ---
pt reports she is feeling much better. states she can swallow better. continues to use the yankauer to clean out her nose. secretions are a dark yellow
--- NOTE | 2022-04-26 11:30 | PC.NURSE ---
Pt breathing even and unlabored, muffled quiet voice, yanker in her hand and pt suctioning secretions.
--- NOTE | 2022-04-26 15:22 | SUR.OPER ---
Supine on padded OR bed, head on pillow, arms padded and tucked at sides, legs uncrossed, safety belt at thigh, tape over blanket over lower legs .
[2022-04-26] MEDS: LIDOCAINE 2% W/EPI INJ 5 ML INJ (16:07)
--- NOTE | 2022-04-26 16:18 | DI.CT.S_ITS ---
PROCEDURE: CT CHEST WO CON INDICATIONS: rule out gas, possible retropharyngeal ext of tonsillar absc TECHNIQUE: Noncontrast 5 mm thick sections acquired from the pulmonary apices to the posterior costophrenic angles. 1 mm lung window, 5 mm thick coronal and sagittal and 7 mm axial MIP reformats were then acquired. For radiation dose reduction, the following was used: automated exposure control, adjustment of mA and/or kV according to patient size. COMPARISON: [facility], CT, CT CHEST WO CON, 02/27/2020, 9:43. FINDINGS: Image quality: Excellent. Lungs and pleura: Consolidative opacities are noted within the bases, left greater than. Mediastinum: Heart size is mildly prominent. No pericardial effusion. No mediastinal adenopathy by size criteria. Thoracic aorta and central pulmonary arteries are normal in size. Esophagus is normal in caliber. No hiatal hernia. Endotracheal tube is present in appropriate position. Bones and chest wall: No suspicious bony lesions. No vertebral body compression fractures. No axillary or supraclavicular adenopathy by size criteria. Thyroid gland is not visualized . Abdomen: Visualized upper abdominal solid organs and bowel loops appear normal in the absence of contrast. IMPRESSION: Bibasilar opacities are present, left greater than right. These likely represent atelectasis as well as dependent change. Developing areas of pneumonia cannot be definitively excluded. Dictated by: Roya Beauchamp M.D. on 04/26/2022 at 18:39 Approved by: Roya Beauchamp M.D. on 04/26/2022 at 18:41
[2022-04-26] MEDS: propofoL 1,000 MG/100 ML VIAL 1.769 MG IV (16:49)
[2022-04-26] MEDS: fentaNYL 1,000 MCG in DEXTROSE 5% IN WATER 230 ML 10.319 MCG IV (16:55)
[2022-04-26] MEDS: LACTATED RINGERS 1,000 ML 75 ML IV ×2 (16:57→20:53)
[2022-04-26] MEDS: MEROPENEM 2 GM in SODIUM CHLORIDE 0.9% 100 ML IV (17:03)
[2022-04-26 17:24] LABS: Add Manual Diff / Slide Review NO; Basophils Absolute Auto 0 /uL (0-100); Basophils Percent Auto 0.2 % (0-2); Eosinophils Absolute Auto 0 /uL (0-450); Hematocrit 35.6 % (36-46); Hemoglobin 11.8 g/dL (12.0-16.0); Lymphocytes Absolute Auto 800 /uL (1100-4500); Lymphocytes Percent Auto 4.4 % (25-40); Mean Corpuscular HGB Conc 33.3 % (30-36); Mean Corpuscular Hemoglobin 29.7 PG (26-34); Mean Corpuscular Volume 89.3 fL (80-100); Monocytes Absolute Auto 400 /uL (0-900); Monocytes Percent Auto 2.2 % (3-14); Neutrophils Absolute Auto 17900 /uL (1500-7000); Neutrophils Percent Auto 93.2 % (50-75); Platelet Count 228 X10^3/uL (150-400); Red Blood Cell Count 3.98 X10^6/uL (4.0-5.2); Red Cell Distribution Width 13.2 % (11.6-14.8); White Blood Cell Count 19.2 X10^3/uL (4.5-11.0)
[2022-04-26 17:33] LABS: Alanine Aminotransferase 26 IU/L (<35); Albumin 3.8 g/dL (3.5-5.0); Alkaline Phosphatase 80 U/L (38-126); Aspartate Aminotransferase 23 IU/L (14-36); BUN Creatinine Ratio 14.3 (6-22); Bilirubin Total 0.5 mg/dL (0.2-1.3); Blood Urea Nitrogen 8 mg/dL (7-17); Calcium 8.5 mg/dL (8.4-10.2); Carbon Dioxide 22 mmol/L (22-32); Chloride 105 mmol/L (98-107); Creatine Kinase 133 U/L (30-135); Estimated Glomerular Filt Rate > 60 mL/min (>60); Globulin 3.9 g/dL (1.7-4.1); Glucose 189 mg/dL (80-110); HEMOLYSIS < 15 (0-50); Potassium 3.5 mmol/L (3.4-5.1); Sodium 139 mmol/L (137-145); Total Protein 7.7 g/dL (6.3-8.2)
--- NOTE | 2022-04-26 18:09 | P.TELICUCN_ITS ---
History of Present Illness Consult details IF CAMERA ACTIVATED, patient seen via real-time interactive audiovisual communication: Camera activated Chief complaint: swollen tongue/tonsils Consent obtained for tele-language pathologist care: Yes Patient Location: ICU Provider location (State): [place] Other participants/roles: none PFSH Social History household members: spouse Smoking Status: Never smoker alcohol intake: current Current Medications Current Medications Medications: Home Medications conjugated estrogens 0.625 mg/gram vaginal cream (Premarin) 1 applic vaginal Q3D 04/26/22 [History Confirmed 04/26/22] fluticasone propionate 50 mcg/actuation nasal spray,suspension 1 spray intranasal DAILY PRN Congestion 04/26/22 [History Confirmed 04/26/22] levothyroxine 88 mcg tablet (Synthroid) 88 mcg PO DAILY 04/26/22 [History Confirmed 04/26/22] loratadine 10 mg tablet 10 mg PO DAILY 04/26/22 [History Confirmed 04/26/22] rosuvastatin 5 mg tablet 5 mg PO DAILY 04/26/22 [History Confirmed 04/26/22] Visit Medications (administered) Generic Name Dose Route Start Last Admin Trade Name Freq PRN Reason Stop Dose Admin Hydromorphone HCl 0.5 mg 04/26/22 07:22 04/26/22 08:17 Hydromorphone 0.5 Mg Inj IV 0.5 mg Q15MIN PRN Administration Pain, Propofol 1,000 mg in 100 mls @ 1.769 mls/hr 04/26/22 12:45 04/26/22 16:52 Propofol IV 20 mcg/kg/min TITRATE BHARATI 7.076 mls/hr Titration Protocol 5 MCG/KG/MIN Fentanyl 1,000 mcg/ Dextrose 250 mls @ 10.319 mls/hr 04/26/22 12:45 04/26/22 16:55 IV 0.7 mcg/kg/hr TITRATE BHARATI 10.319 mls/hr Administration Protocol 0.7 MCG/KG/HR Clindamycin Phosphate 900 mg in 50 mls @ 50 mls/hr 04/26/22 16:21 04/26/22 17:42 Cleocin IV 50 mls/hr Q8H BHARATI Administration Meropenem 2 gm/ Sodium 100 mls @ 200 mls/hr 04/26/22 16:30 04/26/22 17:03 Chloride IV 200 mls/hr Q8H BHARATI Administration Lactated Ringer's 1,000 mls @ 75 mls/hr 04/26/22 16:45 04/26/22 16:57 Lactated Ringers IV 04/27/22 04:44 75 mls/hr CONT BHARATI Administration Exam Vital Signs (past 8 hours): - 04/26/22 10:30 04/26/22 10:30 04/26/22 11:00 Temperature Pulse Rate 102 H Respiratory Rate 21 Blood Pressure 124/63 125/59 L Pulse Oximetry 96 Oxygen Delivery Method 04/26/22 11:00 04/26/22 11:30 04/26/22 11:30 Temperature Pulse Rate 103 H 96 H Respiratory Rate 23 14 Blood Pressure 115/56 L Pulse Oximetry 96 94 Oxygen Delivery Method Room Air Room Air 04/26/22 12:00 04/26/22 12:00 04/26/22 12:30 Temperature Pulse Rate 97 H Respiratory Rate 13 Blood Pressure 112/58 L 137/61 Pulse Oximetry 92 Oxygen Delivery Method Room Air 04/26/22 12:30 04/26/22 13:00 04/26/22 13:00 Temperature Pulse Rate 104 H 108 H Respiratory Rate 25 H 33 H Blood Pressure 126/61 Pulse Oximetry 97 96 Oxygen Delivery Method Room Air Room Air 04/26/22 13:07 04/26/22 13:12 04/26/22 13:12 Temperature Pulse Rate 110 H 112 H Respiratory Rate 41 H 30 H Blood Pressure 134/63 Pulse Oximetry 96 97 Oxygen Delivery Method 04/26/22 13:30 04/26/22 13:30 04/26/22 14:00 Temperature Pulse Rate 105 H Respiratory Rate 33 H Blood Pressure 120/59 L 112/64 Pulse Oximetry 97 Oxygen Delivery Method 04/26/22 14:00 04/26/22 14:30 04/26/22 14:31 Temperature Pulse Rate 101 H 109 H Respiratory Rate 26 H 49 H Blood Pressure 106/64 Pulse Oximetry 92 Oxygen Delivery Method Room Air 04/26/22 14:31 04/26/22 17:04 04/26/22 17:15 Temperature Pulse Rate 107 H 92 H 82 Respiratory Rate 35 H 18 18 Blood Pressure Pulse Oximetry 96 100 Oxygen Delivery Method 04/26/22 17:15 04/26/22 17:30 04/26/22 17:30 Temperature 98.1 F Pulse Rate 82 Respiratory Rate 18 Blood Pressure 92/50 L 85/52 L Pulse Oximetry 97 Oxygen Delivery Method 04/26/22 16:14 04/26/22 17:43 04/26/22 17:43 Temperature Pulse Rate 78 Respiratory Rate 18 Blood Pressure 84/53 L Pulse Oximetry 97 Oxygen Delivery Method Mechanical Ventilation Oxygen Delivery Method Mechanical Ventilation Objective Labs Result Diagrams: 04/26/22 17:05 04/26/22 17:05 Labs: Laboratory Results - last 24 hr 04/26/22 04/26/22 04/26/22 04:00 04:08 04:08 WBC 21.3 H RBC 4.16 Hgb 12.5 Hct 36.5 MCV 87.9 MCH 30.0 MCHC 34.1 RDW 12.9 Plt Count 227 Neut % (Auto) Not Reportable Lymph % (Auto) Not Reportable [place] % (Auto) Not Reportable Eos % (Auto) Not Reportable Baso % (Auto) Not Reportable Neut # (Auto) Lymph # (Auto) Not Reportable [place] # (Auto) Not Reportable Eos # (Auto) Baso # (Auto) Not Reportable Total Counted 100 Seg Neutrophils % 87.0 H Lymphocytes % (Manual) 5.0 L Atypical Lymphs % 2.0 H Monocytes % (Manual) 6.0 Neutrophils # (Manual) 99350 H RBC Morphology Normal morphology Sodium 126 L Potassium 3.8 Chloride 91 L Carbon Dioxide 24 BUN 6 L Creatinine 0.45 L Estimated GFR > 60 BUN/Creatinine Ratio 13.3 Glucose 153 H Lactate Calcium 8.9 Total Bilirubin 1.2 AST 28 ALT 33 Alkaline Phosphatase 100 Total Creatine Kinase Total Protein 9.0 H Albumin 4.6 Globulin 4.4 H Albumin/Globulin Ratio 1.0 Lipase 73 Procalcitonin SARS-CoV-2 (PCR) Negative 04/26/22 04/26/22 04/26/22 04:08 04:08 17:05 WBC 19.2 H RBC 3.98 L Hgb 11.8 L Hct 35.6 L MCV 89.3 MCH 29.7 MCHC 33.3 RDW 13.2 Plt Count 228 Neut % (Auto) 93.2 H Lymph % (Auto) 4.4 L [place] % (Auto) 2.2 L Eos % (Auto) 0.0 L Baso % (Auto) 0.2 Neut # (Auto) 09547 H Lymph # (Auto) 800 L [place] # (Auto) 400 Eos # (Auto) 0 Baso # (Auto) 0 Total Counted Seg Neutrophils % Lymphocytes % (Manual) Atypical Lymphs % Monocytes % (Manual) Neutrophils # (Manual) RBC Morphology Sodium Potassium Chloride Carbon Dioxide BUN Creatinine Estimated GFR BUN/Creatinine Ratio Glucose Lactate 1.4 Calcium Total Bilirubin AST ALT Alkaline Phosphatase Total Creatine Kinase Total Protein Albumin Globulin Albumin/Globulin Ratio Lipase Procalcitonin 0.20 SARS-CoV-2 (PCR) 04/26/22 04/26/22 17:05 17:05 WBC RBC Hgb Hct MCV MCH MCHC RDW Plt Count Neut % (Auto) Lymph % (Auto) [place] % (Auto) Eos % (Auto) Baso % (Auto) Neut # (Auto) Lymph # (Auto) [place] # (Auto) Eos # (Auto) Baso # (Auto) Total Counted Seg Neutrophils % Lymphocytes % (Manual) Atypical Lymphs % Monocytes % (Manual) Neutrophils # (Manual) RBC Morphology Sodium 139 D Potassium 3.5 Chloride 105 Carbon Dioxide 22 BUN 8 Creatinine 0.56 Estimated GFR > 60 BUN/Creatinine Ratio 14.3 Glucose 189 H Lactate Calcium 8.5 Total Bilirubin 0.5 AST 23 ALT 26 Alkaline Phosphatase 80 Total Creatine Kinase 133 Total Protein 7.7 Albumin 3.8 Globulin 3.9 Albumin/Globulin Ratio 1.0 Lipase Procalcitonin SARS-CoV-2 (PCR) Assessment & Plan Assessment & Plan narrative: patietn seen and evaluated with bedside nurse chart/labs/imaging reviewed 62 yaer old female admitted to ICU with sepsis 2/2 left pharygeal abscess acute resp failure afebrile, HD stable intubated,sedated WBC 20 CT showing left phayrgeal abscess plan -optimize sedation to maintain secure airway, goal rass 0 -can add paralytics if needed -vent support , check cxr/abg prn -check cxs -abx per surgery -bolus ivf prn -pressors support if needed, keep map above 65 -may need transfer to a higher level of care -keep glucose 140-180s -monitor ins/outs, replace lytes prn -gi/dvt ppx -please call eICU if condition changes Time Spent With Patient Critical Care time: I spent a total of [] minutes of critical care time on this patient's care today; this time is exclusive of procedural time.
[2022-04-26] MEDS: CHLORHEXIDINE GLUCONATE 15 ML CUP PO (19:55)
[2022-04-26] MEDS: FAMOTIDINE 20 MG/2 ML VIAL IV (21:16)
[2022-04-26] MEDS: HEPARIN 5,000 UNIT/ML VIAL 5000 UNIT SUBCUT (21:16)
--- NOTE | 2022-04-26 21:30 | PM.HP.1 ---
History of Present Illness History of Present Illness Date Patient Seen: 04/26/22 Time Patient Seen: 16:00 Chief complaint: swollen tongue/tonsils Narrative: Percy Morrison is a 62yo F with a PMH of hypothyroidism and HLD who presented to the ED with increased tongue and neck swelling as well as muffled voice over several days. CT neck showed left peritonsillar abscess with 3cm fluid collection. [facility] contacted for possible transfer but was denied due to lack of beds. ENT consulted who intubated pt and took to the OR for I&D however they were unable to locate a fluid collection to drain. Patient then transferred up to ICU intubated for monitoring and started on IV clinda and meropenem. Received 20mg IV decadron in ED. At bedside patient is intubated. Unable to obtain further history due to this. Patient History Family & Social History Social History: household members spouse Prior Living Arrangements House Safety & Behavioral: Feels Safe in Current Yes Environment Tobacco & Substance use: Smoking Status Never smoker alcohol intake current alcohol intake frequency a few times a week Substance Use Type does not use Meds Home Medications and Allergies Home Medications Medication Instructions Recorded Confirmed Type conjugated estrogens 0.625 mg/gram 1 applic vaginal Q3D 04/26/22 04/26/22 History vaginal cream (Premarin) fluticasone propionate 50 1 spray intranasal DAILY PRN 04/26/22 04/26/22 History mcg/actuation nasal Congestion spray,suspension levothyroxine 88 mcg tablet 88 mcg PO DAILY 04/26/22 04/26/22 History (Synthroid) loratadine 10 mg tablet 10 mg PO DAILY 04/26/22 04/26/22 History rosuvastatin 5 mg tablet 5 mg PO DAILY 04/26/22 04/26/22 History Allergies Allergy/AdvReac Type Severity Reaction Status Date / Time cephalexin [From Keflex] AdvReac Mild Verified 04/24/22 15:32 Review of Systems Review of Systems Narrative: All other systems reviewed with the patient and are negative unless otherwise stated. Exam Vital Signs (past 8 hours): - 04/26/22 14:00 04/26/22 14:00 04/26/22 14:30 Temperature Pulse Rate 101 H 109 H Respiratory Rate 26 H 49 H Blood Pressure 112/64 Pulse Oximetry 92 Oxygen Delivery Method Room Air 04/26/22 14:31 04/26/22 14:31 04/26/22 17:04 Temperature Pulse Rate 107 H 92 H Respiratory Rate 35 H 18 Blood Pressure 106/64 Pulse Oximetry 96 Oxygen Delivery Method 04/26/22 17:15 04/26/22 17:15 04/26/22 17:30 Temperature Pulse Rate 82 Respiratory Rate 18 Blood Pressure 92/50 L 85/52 L Pulse Oximetry 100 Oxygen Delivery Method 04/26/22 17:30 04/26/22 16:14 04/26/22 17:43 Temperature 98.1 F Pulse Rate 82 Respiratory Rate 18 Blood Pressure 84/53 L Pulse Oximetry 97 Oxygen Delivery Method Mechanical Ventilation 04/26/22 17:43 04/26/22 17:56 04/26/22 17:56 Temperature Pulse Rate 78 74 Respiratory Rate 18 18 Blood Pressure 90/54 L Pulse Oximetry 97 99 Oxygen Delivery Method 04/26/22 18:00 04/26/22 18:31 04/26/22 18:33 Temperature Pulse Rate 80 75 75 Respiratory Rate 18 17 19 Blood Pressure Pulse Oximetry 100 100 Oxygen Delivery Method 04/26/22 18:33 04/26/22 18:34 04/26/22 18:34 Temperature Pulse Rate 74 Respiratory Rate 18 Blood Pressure 90/50 L 89/53 L Pulse Oximetry 100 Oxygen Delivery Method 04/26/22 18:35 04/26/22 18:35 04/26/22 18:37 Temperature Pulse Rate 74 74 Respiratory Rate 18 18 Blood Pressure 88/55 L Pulse Oximetry 100 100 Oxygen Delivery Method 04/26/22 18:37 Temperature Pulse Rate Respiratory Rate Blood Pressure 94/50 L Pulse Oximetry Oxygen Delivery Method Oxygen Delivery Method Mechanical Ventilation Narrative Exam Narrative: GEN: Intubated HEENT: moist mucous membranes, PERRL NECK: Left neck mild swelling CV: regular rate and rhythm, no murmurs PULM: clear bilaterally ABD: soft, nontender, nondistended, no organomegaly EXT: warm and well perfused with no edema NEURO: no deficits Objective Labs Result Diagrams: 04/26/22 17:05 04/26/22 17:05 Labs: Laboratory Results - last 24 hr 04/26/22 04/26/22 04/26/22 04:00 04:08 04:08 WBC 21.3 H RBC 4.16 Hgb 12.5 Hct 36.5 MCV 87.9 MCH 30.0 MCHC 34.1 RDW 12.9 Plt Count 227 Neut % (Auto) Not Reportable Lymph % (Auto) Not Reportable [place] % (Auto) Not Reportable Eos % (Auto) Not Reportable Baso % (Auto) Not Reportable Neut # (Auto) Lymph # (Auto) Not Reportable [place] # (Auto) Not Reportable Eos # (Auto) Baso # (Auto) Not Reportable Total Counted 100 Seg Neutrophils % 87.0 H Lymphocytes % (Manual) 5.0 L Atypical Lymphs % 2.0 H Monocytes % (Manual) 6.0 Neutrophils # (Manual) 65316 H RBC Morphology Normal morphology Sodium 126 L Potassium 3.8 Chloride 91 L Carbon Dioxide 24 BUN 6 L Creatinine 0.45 L Estimated GFR > 60 BUN/Creatinine Ratio 13.3 Glucose 153 H Lactate Calcium 8.9 Total Bilirubin 1.2 AST 28 ALT 33 Alkaline Phosphatase 100 Total Creatine Kinase Total Protein 9.0 H Albumin 4.6 Globulin 4.4 H Albumin/Globulin Ratio 1.0 Lipase 73 Procalcitonin Nasal Screen MRSA (PCR) SARS-CoV-2 (PCR) Negative 04/26/22 04/26/22 04/26/22 04:08 04:08 17:00 WBC RBC Hgb Hct MCV MCH MCHC RDW Plt Count Neut % (Auto) Lymph % (Auto) [place] % (Auto) Eos % (Auto) Baso % (Auto) Neut # (Auto) Lymph # (Auto) [place] # (Auto) Eos # (Auto) Baso # (Auto) Total Counted Seg Neutrophils % Lymphocytes % (Manual) Atypical Lymphs % Monocytes % (Manual) Neutrophils # (Manual) RBC Morphology Sodium Potassium Chloride Carbon Dioxide BUN Creatinine Estimated GFR BUN/Creatinine Ratio Glucose Lactate 1.4 Calcium Total Bilirubin AST ALT Alkaline Phosphatase Total Creatine Kinase Total Protein Albumin Globulin Albumin/Globulin Ratio Lipase Procalcitonin 0.20 Nasal Screen MRSA (PCR) Negative for mrsa SARS-CoV-2 (PCR) 04/26/22 04/26/22 04/26/22 17:05 17:05 17:05 WBC 19.2 H RBC 3.98 L Hgb 11.8 L Hct 35.6 L MCV 89.3 MCH 29.7 MCHC 33.3 RDW 13.2 Plt Count 228 Neut % (Auto) 93.2 H Lymph % (Auto) 4.4 L [place] % (Auto) 2.2 L Eos % (Auto) 0.0 L Baso % (Auto) 0.2 Neut # (Auto) 89918 H Lymph # (Auto) 800 L [place] # (Auto) 400 Eos # (Auto) 0 Baso # (Auto) 0 Total Counted Seg Neutrophils % Lymphocytes % (Manual) Atypical Lymphs % Monocytes % (Manual) Neutrophils # (Manual) RBC Morphology Sodium 139 D Potassium 3.5 Chloride 105 Carbon Dioxide 22 BUN 8 Creatinine 0.56 Estimated GFR > 60 BUN/Creatinine Ratio 14.3 Glucose 189 H Lactate Calcium 8.5 Total Bilirubin 0.5 AST 23 ALT 26 Alkaline Phosphatase 80 Total Creatine Kinase 133 Total Protein 7.7 Albumin 3.8 Globulin 3.9 Albumin/Globulin Ratio 1.0 Lipase Procalcitonin Nasal Screen MRSA (PCR) SARS-CoV-2 (PCR) Assessment & Plan Assessment & Plan narrative: # left peritonsillar abscess s/p intubation due to laryngeal swelling -patient noted muffled voice, tongue and left neck swelling for several days -CT neck with complex abscess and extensive laryngeal swelling and 3 cm fluid collection, no extension into the retropharyngeal space -ENT consulted and following, unable to I&D in OR -plan is to repeat CT neck in 24 hours and if worsening [facility] will accept for transfer. If stable we will continue IV antibiotics and monitoring clinically -continue meropenem and clindamycin, spoke with ID at [facility] recommended adding daptomycin and obtaining CT chest to check for extension into mediastinum -CT chest negative for extension of abscess -continue Decadron 20 mg IV daily -follow-up blood cultures -continue ventilator support -appreciate tele ICU consultation # hypothyroidism, chronic -check TSH -we will continue Synthroid once extubated, no NG tube secondary to tonsillar abscess # hyperlipidemia, chronic -continue Crestor once extubated I spent a total of 35 minutes of critical care time on this patient's care today; this time is exclusive of procedural time. Code status is full code. COVID negative. DVT prophylaxis with heparin subQ. Proxy is Mirza. I have reviewed home meds and used all available resources to reconcile the home meds. Time Spent With Patient Critical Care time: I spent a total of [] minutes of critical care time on this patient's care today; this time is exclusive of procedural time. Quality VTE Deep Vein Thrombosis/Pulmonary Embolism Present on Admission: No
[2022-04-26] MEDS: DAPTOMYCIN IV (21:50)
[2022-04-26] MEDS: SODIUM CHLORIDE 0.9% IV (21:50)
[2022-04-27] VITALS (71 sets, daily range): BP systolic 84–183; BP diastolic 46–96; PULSE 55–97; RESP 12–64; TEMP 35–36.8; O2SAT 95–100
[2022-04-27] MEDS: MEROPENEM 2 GM in SODIUM CHLORIDE 0.9% 100 ML IV ×3 (00:21→16:49)
[2022-04-27] MEDS: LACTATED RINGERS 1,000 ML 1000 ML IV (01:40)
[2022-04-27] MEDS: methylPREDNISolone 125 MG/2 ML VIAL IV (01:44)
[2022-04-27 02:19] LABS: HCO3 ABG 21 mmol/L (22-26); PCO2 ABG 27.3 mmHg (35-45); PO2 ABG 107 mmHg (80-100); TCO2 ABG 21 mmol/L (21-31); pH ABG 7.49 (7.35-7.45)
[2022-04-27 02:20] LABS: Fractionated Inspired Oxygen 40; Oxygen Saturation ABG 99 % (95-100)
[2022-04-27 03:19] LABS: Lactate (Lactic Acid) 1.7 mmol/L (0.7-2.1)
[2022-04-27 03:20] LABS: BUN Creatinine Ratio 25.5 (6-22); Blood Urea Nitrogen 13 mg/dL (7-17); Calcium 7.5 mg/dL (8.4-10.2); Carbon Dioxide 22 mmol/L (22-32); Chloride 110 mmol/L (98-107); Estimated Glomerular Filt Rate > 60 mL/min (>60); Glucose 154 mg/dL (80-110); HEMOLYSIS < 15 (0-50); Potassium 3.2 mmol/L (3.4-5.1); Sodium 138 mmol/L (137-145)
[2022-04-27 03:21] LABS: Add Manual Diff / Slide Review NO; Basophils Absolute Auto 0 /uL (0-100); Eosinophils Absolute Auto 0 /uL (0-450); Hemoglobin 9.2 g/dL (12.0-16.0); Lymphocytes Absolute Auto 1000 /uL (1100-4500); Lymphocytes Percent Auto 7.8 % (25-40); Mean Corpuscular HGB Conc 34.1 % (30-36); Mean Corpuscular Hemoglobin 30.2 PG (26-34); Mean Corpuscular Volume 88.4 fL (80-100); Monocytes Absolute Auto 500 /uL (0-900); Monocytes Percent Auto 3.6 % (3-14); Neutrophils Absolute Auto 11000 /uL (1500-7000); Neutrophils Percent Auto 88.6 % (50-75); Platelet Count 174 X10^3/uL (150-400); Red Blood Cell Count 3.06 X10^6/uL (4.0-5.2); Red Cell Distribution Width 12.9 % (11.6-14.8); White Blood Cell Count 12.4 X10^3/uL (4.5-11.0)
[2022-04-27 04:03] LABS: TSH w/ Reflex to FT4 0.36 uIU/mL (0.47-4.68)
[2022-04-27] MEDS: POTASSIUM CHLORIDE IN WATER 10 MEQ/100 ML PIGGYBACK 100 MEQ IV ×4 (04:08→08:17)
--- NOTE | 2022-04-27 05:00 | DI.RAD.S_ITS ---
PROCEDURE: XR CHEST 1V INDICATIONS: Intubation TECHNIQUE: One view of the chest was acquired. COMPARISON: None. FINDINGS: Surgical changes and devices: Endotracheal tube is well position. Lungs and pleura: Lungs are clear. A patchy area of airspace opacity in the left lower lung field is seen likely focal atelectasis. No pleural effusions or pneumothorax. Mediastinum: Mediastinal contours appear normal. Heart size is normal. Bones and chest wall: No suspicious bony lesions. Overlying soft tissues appear unremarkable. IMPRESSION: 1. Endotracheal tube is well position. 2. No acute cardiopulmonary abnormality except for a patchy area in the left lung base. Dictated by: Rupert Morris M.D. on 04/27/2022 at 8:31 Approved by: Rupert Morris M.D. on 04/27/2022 at 9:01
[2022-04-27] MEDS: CHLORHEXIDINE GLUCONATE 15 ML CUP PO ×4 (05:29→23:26)
[2022-04-27] MEDS: propofoL 1,000 MG/100 ML VIAL 3.538 MG IV (05:29)
[2022-04-27 05:43] LABS: Free T4, Direct Thyroxine 2.13 ng/dL (0.78-2.19)
--- NOTE | 2022-04-27 06:05 | PC.NURSE ---
Shift Note: At 1930, patient became hypotensive BP 70/46, notified tele ICU MD Yusuf and ordered liter bolus of fluids and if patient still hypotensive, ordered central line placement for vasopressors initiation. Fluid bolus given and BP went up to 96/55 at 1999. However, BP dropped again to 84/51 at 2029, [employer] Osito notified re: placement of central line to start levophed. Anesthesiologist came to the bedside and this nurse informed him re: the need for central line placement. At 0130H, BP dropped to 86/51 MAP 63, provider notified and ordered fluid bolus and dose of steroids. Bolus complete SBP 90s MAP >65. Will continue to monitor.
--- NOTE | 2022-04-27 07:00 | DI.CT.S_ITS ---
PROCEDURE: CT SOFT TISSUE NECK W CON INDICATIONS: assess for worsening/expansion of peritonsillar abscess TECHNIQUE: After the administration of intravenous contrast, 3.0 mm axial sections acquired from the sella to the aortic arch. Additional oblique axial 3.0 mm sections acquired through the pharynx. 3 mm thick coronal and sagittal reformats were generated. For radiation dose reduction, the following was used: automated exposure control. COMPARISON: [facility], CT, CT SOFT TISSUE NECK W CON, 04/26/2022, 4:39. FINDINGS: Image quality: Excellent. Lymph nodes: There are multiple shotty cervical lymph nodes, none of which meet the pathologic size criteria for adenopathy. Vessels: Visualized vasculature appears patent. 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 Neck spaces: When compared with the study dated April 26, 2022, the left peritonsillar abscess has decreased in size and now measures 1.7 x 1.4 cm. Previously measured 1.6 x 2.2 cm in the same plane. As before, there is diffuse soft tissue swelling and enhancement surrounding the fluid portion of this abscess. The patient is intubated. No other suspicious fluid collections or mucosal abnormalities. Glands: The parotid and submandibular glands appear normal. Thyroid gland is not well visualized. Miscellaneous: Visualized brain and orbits appear normal. Lung apices appear clear. Superficial soft tissues appear normal. Visualized portions of the paranasal sinuses demonstrate mucosal thickening and fluid within the bilateral maxillary and sphenoid sinuses. Bones: No suspicious bony lesions. Visualized sinuses and mastoids appear unremarkable. IMPRESSION: 1. Overall decreased size of the left peritonsillar abscess when compared with the CT dated April 26, 2025; however some low-density fluid persists centrally. 2. Fluid within the paranasal sinuses likely secondary to intubation. Dictated by: Nadja Dc M.D. on 04/27/2022 at 10:00 Approved by: Nadja Dc M.D. on 04/27/2022 at 10:07
[2022-04-27] MEDS: diphenhydrAMINE 50 MG/ML VIAL 25 MG IV (08:22)
[2022-04-27] MEDS: CLINDAMYCIN 900 MG/50 ML PIGGYBACK 50 MG IV ×4 (08:23→23:26)
--- NOTE | 2022-04-27 09:03 | DIET.CONS2 ---
Dietary Inpatient Consultation Note Admission Date: 04/26/2022 16:05 62y F admitted for compromised airway secondary to tongue/tonsil abscess intubated and referred to nutrition for NPO on vent status. RD spoke c nursing, pt awake and oriented despite intubation. No OG/NG placed secondary to concern for aspiration. Pt on vent <24h, awaiting POC for nutrition support if needed (extubation in next 1-3d vs TPN). Pt currently receiving propofol at 10mcg/kg and had LR bolus last evening both providing kcals but no protein. Electronically Signed by: Cheri Cm 04/27/22 09:03 Clinical Dietitian [address] [id number]
[2022-04-27] MEDS: dexAMETHasone 20 MG in SODIUM CHLORIDE 0.9% 50 ML 208 MG IV (10:03)
[2022-04-27] MEDS: HEPARIN 5,000 UNIT/ML VIAL 5000 UNIT SUBCUT ×2 (10:23→20:11)
[2022-04-27] MEDS: FAMOTIDINE 20 MG/2 ML VIAL IV ×2 (10:24→20:12)
[2022-04-27 12:07] LABS: Hematocrit 29.3 % (36-46)
--- NOTE | 2022-04-27 13:17 | P.TELICUPN_ITS ---
Subjective Subjective IF CAMERA ACTIVATED, patient seen via real-time interactive audiovisual communication: Camera activated Consent obtained for tele-laboratory asst care: Yes Patient Location: ICU Provider location (State): [place] Other participants/roles: RN, MD Interval history: Patient awake, on small amounts ofsedation, using cell phone and in no acute distress. Repeat CT with decreasing size of peritonsillar abscess. + leak test today, failed PSV tirals though as she became apneic, thohg awake Current Medications Current Medications Medications: Home Medications conjugated estrogens 0.625 mg/gram vaginal cream (Premarin) 1 applic vaginal Q3D 04/26/22 [History Confirmed 04/26/22] fluticasone propionate 50 mcg/actuation nasal spray,suspension 1 spray intranasal DAILY PRN Congestion 04/26/22 [History Confirmed 04/26/22] levothyroxine 88 mcg tablet (Synthroid) 88 mcg PO DAILY 04/26/22 [History Confirmed 04/26/22] loratadine 10 mg tablet 10 mg PO DAILY 04/26/22 [History Confirmed 04/26/22] rosuvastatin 5 mg tablet 5 mg PO DAILY 04/26/22 [History Confirmed 04/26/22] Visit Medications (administered) Generic Name Dose Route Start Last Admin Trade Name Freq PRN Reason Stop Dose Admin Chlorhexidine Gluconate 15 ml 04/27/22 06:00 04/27/22 05:29 Chlorhexidine Gluconate 15 Ml Cup PO 15 ml Q6HR BHARATI Administration Famotidine 20 mg 04/26/22 21:00 04/27/22 10:24 Famotidine 20 Mg/2 Ml Vial IV 20 mg BID BHARATI Administration Heparin Sodium (Porcine) 5,000 unit 04/26/22 21:00 04/27/22 10:23 Heparin 5,000 Unit/Ml Vial SUBCUT 5,000 unit BID BHARATI Administration Hydromorphone HCl 0.5 mg 04/26/22 07:22 04/26/22 08:17 Hydromorphone 0.5 Mg Inj IV 0.5 mg Q15MIN PRN Administration Pain, Propofol 1,000 mg in 100 mls @ 1.769 mls/hr 04/26/22 12:45 04/27/22 05:29 Propofol IV 10 mcg/kg/min TITRATE BHARATI 3.538 mls/hr Administration Protocol 5 MCG/KG/MIN Fentanyl 1,000 mcg/ Dextrose 250 mls @ 10.319 mls/hr 04/26/22 12:45 04/26/22 20:00 IV 0.5 mcg/kg/hr TITRATE BHARATI 7.371 mls/hr Titration Protocol 0.7 MCG/KG/HR Clindamycin Phosphate 900 mg in 50 mls @ 50 mls/hr 04/26/22 16:21 04/27/22 08:23 Cleocin IV 50 mls/hr Q8H BHARATI Administration Meropenem 2 gm/ Sodium 100 mls @ 200 mls/hr 04/26/22 16:30 04/27/22 08:23 Chloride IV 200 mls/hr Q8H BHARATI Administration Dexamethasone 20 mg/ Sodium 52 mls @ 208 mls/hr 04/27/22 09:00 04/27/22 10:03 Chloride IV 208 mls/hr DAILY BHARATI Administration Daptomycin 480 mg/ Sodium 50 mls @ 100 mls/hr 04/26/22 18:00 04/26/22 21:50 Chloride IV 100 mls/hr Q24H BHARATI Administration Objective Ventilator Parameters: Ventilator Settings FiO2 21 RT Vent Frequency 18 Ventilator Tidal Volume 350 Exhaled Vt/kg IBW 6.5 Positive End Expiratory 5 Pressure Inspiratory Phase Time 0.9 Patient Position HOB >= 30 degrees Labs Result Diagrams: 04/27/22 11:45 04/27/22 02:56 Labs: Laboratory Results - last 24 hr 04/26/22 04/26/22 04/26/22 17:00 17:05 17:05 WBC 19.2 H RBC 3.98 L Hgb 11.8 L Hct 35.6 L MCV 89.3 MCH 29.7 MCHC 33.3 RDW 13.2 Plt Count 228 Neut % (Auto) 93.2 H Lymph % (Auto) 4.4 L [place] % (Auto) 2.2 L Eos % (Auto) 0.0 L Baso % (Auto) 0.2 Neut # (Auto) 28581 H Lymph # (Auto) 800 L [place] # (Auto) 400 Eos # (Auto) 0 Baso # (Auto) 0 ABG pH ABG pCO2 ABG pO2 ABG HCO3 ABG Total CO2 ABG O2 Saturation ABG Base Excess FiO2 Sodium 139 D Potassium 3.5 Chloride 105 Carbon Dioxide 22 BUN 8 Creatinine 0.56 Estimated GFR > 60 BUN/Creatinine Ratio 14.3 Glucose 189 H Lactate Calcium 8.5 Magnesium Total Bilirubin 0.5 AST 23 ALT 26 Alkaline Phosphatase 80 Total Creatine Kinase Total Protein 7.7 Albumin 3.8 Globulin 3.9 Albumin/Globulin Ratio 1.0 TSH Free T4 Nasal Screen MRSA (PCR) Negative for mrsa 04/26/22 04/27/22 04/27/22 17:05 02:04 02:56 WBC 12.4 H RBC 3.06 L Hgb 9.2 L Hct 27.0 L MCV 88.4 MCH 30.2 MCHC 34.1 RDW 12.9 Plt Count 174 Neut % (Auto) 88.6 H Lymph % (Auto) 7.8 L [place] % (Auto) 3.6 Eos % (Auto) 0.0 L Baso % (Auto) 0.0 Neut # (Auto) 48643 H Lymph # (Auto) 1000 L [place] # (Auto) 500 Eos # (Auto) 0 Baso # (Auto) 0 ABG pH 7.49 H ABG pCO2 27.3 L ABG pO2 107 H ABG HCO3 21 L ABG Total CO2 21 ABG O2 Saturation 99 ABG Base Excess -3.0 L FiO2 40 Sodium Potassium Chloride Carbon Dioxide BUN Creatinine Estimated GFR BUN/Creatinine Ratio Glucose Lactate Calcium Magnesium Total Bilirubin AST ALT Alkaline Phosphatase Total Creatine Kinase 133 Total Protein Albumin Globulin Albumin/Globulin Ratio TSH Free T4 Nasal Screen MRSA (PCR) 04/27/22 04/27/22 04/27/22 02:56 02:56 02:56 WBC RBC Hgb Hct MCV MCH MCHC RDW Plt Count Neut % (Auto) Lymph % (Auto) [place] % (Auto) Eos % (Auto) Baso % (Auto) Neut # (Auto) Lymph # (Auto) [place] # (Auto) Eos # (Auto) Baso # (Auto) ABG pH ABG pCO2 ABG pO2 ABG HCO3 ABG Total CO2 ABG O2 Saturation ABG Base Excess FiO2 Sodium 138 Potassium 3.2 L Chloride 110 H Carbon Dioxide 22 BUN 13 Creatinine 0.51 L Estimated GFR > 60 BUN/Creatinine Ratio 25.5 H Glucose 154 H Lactate 1.7 Calcium 7.5 L Magnesium Total Bilirubin AST ALT Alkaline Phosphatase Total Creatine Kinase Total Protein Albumin Globulin Albumin/Globulin Ratio TSH 0.36 L Free T4 2.13 Nasal Screen MRSA (PCR) 04/27/22 04/27/22 02:56 11:45 WBC RBC Hgb 10.0 L Hct 29.3 L MCV MCH MCHC RDW Plt Count Neut % (Auto) Lymph % (Auto) [place] % (Auto) Eos % (Auto) Baso % (Auto) Neut # (Auto) Lymph # (Auto) [place] # (Auto) Eos # (Auto) Baso # (Auto) ABG pH ABG pCO2 ABG pO2 ABG HCO3 ABG Total CO2 ABG O2 Saturation ABG Base Excess FiO2 Sodium Potassium Chloride Carbon Dioxide BUN Creatinine Estimated GFR BUN/Creatinine Ratio Glucose Lactate Calcium Magnesium 2.0 Total Bilirubin AST ALT Alkaline Phosphatase Total Creatine Kinase Total Protein Albumin Globulin Albumin/Globulin Ratio TSH Free T4 Nasal Screen MRSA (PCR) Exam Vital Signs (past 8 hours): - 04/27/22 05:29 04/27/22 06:00 04/27/22 05:30 Temperature Pulse Rate 59 L 57 L Respiratory Rate 18 18 Blood Pressure Pulse Oximetry 100 100 Oxygen Delivery Method Fraction of Inspired Oxygen 0.40 04/27/22 05:30 04/27/22 06:01 04/27/22 06:01 Temperature Pulse Rate 80 Respiratory Rate 20 Blood Pressure 104/53 L 109/86 Pulse Oximetry 99 Oxygen Delivery Method Fraction of Inspired Oxygen 04/27/22 06:08 04/27/22 07:25 04/27/22 06:30 Temperature Pulse Rate 66 63 Respiratory Rate 22 18 Blood Pressure Pulse Oximetry 100 100 Oxygen Delivery Method Fraction of Inspired Oxygen 0.75 04/27/22 06:30 04/27/22 07:01 04/27/22 07:01 Temperature Pulse Rate 62 Respiratory Rate 18 Blood Pressure 122/60 111/55 L Pulse Oximetry 100 Oxygen Delivery Method Fraction of Inspired Oxygen 04/27/22 07:22 04/27/22 09:30 04/27/22 07:30 Temperature 97.5 F L Pulse Rate 63 Respiratory Rate 18 16 Blood Pressure 119/61 Pulse Oximetry 100 Oxygen Delivery Method Fraction of Inspired Oxygen 04/27/22 07:30 04/27/22 08:00 04/27/22 08:00 Temperature Pulse Rate 61 64 Respiratory Rate 18 18 Blood Pressure 127/60 Pulse Oximetry 100 100 Oxygen Delivery Method Fraction of Inspired Oxygen 04/27/22 08:30 04/27/22 08:30 04/27/22 09:00 Temperature Pulse Rate 61 Respiratory Rate 18 Blood Pressure 120/59 L 120/61 Pulse Oximetry 100 Oxygen Delivery Method Fraction of Inspired Oxygen 04/27/22 09:00 04/27/22 09:58 04/27/22 09:59 Temperature Pulse Rate 62 67 64 Respiratory Rate 18 14 Blood Pressure Pulse Oximetry 100 96 98 Oxygen Delivery Method Fraction of Inspired Oxygen 04/27/22 09:59 04/27/22 10:00 04/27/22 10:00 Temperature Pulse Rate 63 Respiratory Rate 12 Blood Pressure 90/54 L 129/56 L Pulse Oximetry 97 Oxygen Delivery Method Fraction of Inspired Oxygen 04/27/22 10:30 04/27/22 10:30 04/27/22 07:00 Temperature Pulse Rate 58 L Respiratory Rate 18 Blood Pressure 116/59 L Pulse Oximetry 98 Oxygen Delivery Method Mechanical Ventilation Fraction of Inspired Oxygen 04/27/22 11:00 04/27/22 11:00 04/27/22 11:00 Temperature Pulse Rate 55 L Respiratory Rate 18 Blood Pressure 115/59 L Pulse Oximetry 97 Oxygen Delivery Method Mechanical Ventilation Fraction of Inspired Oxygen 04/27/22 11:30 04/27/22 11:30 04/27/22 12:00 Temperature Pulse Rate 60 Respiratory Rate 18 Blood Pressure 123/58 L 133/63 Pulse Oximetry 97 Oxygen Delivery Method Fraction of Inspired Oxygen 04/27/22 12:00 04/27/22 12:30 04/27/22 12:30 Temperature Pulse Rate 66 62 Respiratory Rate 23 18 Blood Pressure 117/64 Pulse Oximetry 97 96 Oxygen Delivery Method Fraction of Inspired Oxygen 04/27/22 13:00 04/27/22 13:00 Temperature 95 F L Pulse Rate 66 Respiratory Rate 19 Blood Pressure 144/67 H Pulse Oximetry 97 Oxygen Delivery Method Fraction of Inspired Oxygen Fraction of Inspired Oxygen 0.75 Oxygen Delivery Method Mechanical Ventilation Narrative Exam Narrative: surrogate for exam is primary team Quality TeleICU VTE Deep Vein Thrombosis/Pulmonary Embolism Present on Admission: No Assessment & Plan Assessment & Plan narrative: 62 yaer old female admitted to ICU with sepsis 2/2 left peritonssilarl abscess acute resp failure afebrile, HD stable intubated,sedated plan - hold sedation for PSV trials -vent support , ltvv when on full support - trend abg -check cxs - cont current abx - f/u ENT -bolus ivf prn -pressors support if needed, keep map above 65 -may need transfer to a higher level of care -keep glucose 140-180s -monitor ins/outs, replace lytes prn -gi/dvt ppx - steroids -please call eICU if condition changes total critical care time 35 min Time Spent With Patient Critical Care time: I spent a total of [] minutes of critical care time on this patient's care today; this time is exclusive of procedural time.
--- NOTE | 2022-04-27 14:22 | DI.RAD.S_ITS ---
PROCEDURE: XR CHEST FOR PICC 1V INDICATIONS: PICC line placement verification TECHNIQUE: One view of the chest was acquired. COMPARISON: [facility], CR, XR CHEST 1V, 04/27/2022, 4:58. FINDINGS: Surgical changes and devices: There is a right PICC, the tip of which is projected over the cavoatrial junction. Lungs and pleura: Lungs are clear. No pleural effusions or pneumothorax. Mediastinum: Mediastinal contours appear normal. Heart size is normal. Bones and chest wall: No suspicious bony lesions. Overlying soft tissues appear unremarkable. IMPRESSION: Right PICC as above. No other interval change. Dictated by: Nadja Dc M.D. on 04/27/2022 at 14:57 Approved by: Nadja Dc M.D. on 04/27/2022 at 14:58
--- NOTE | 2022-04-27 16:23 | PC.NURSE ---
Addendum entered by Angélica Stoddard R.N. 04/27/22 16:28: restraints removed per Dr Martinez, pt able to resist pulling at lines, wants to be able to self suction. Original Note: Pt A/Ox4 sitting up in bed vent settings FiO2 40% TV 350 PEEP5 RR16, sedation turned off at 1245 per hospitalist request, pt able to be awake and comfortable with fentanyl pushes instead of propofol and fentanyl drips, pt agreeable. PICC line placed, pt able to make needs known by white board, able to use call light appropriately. Bed low and locked, call light within reach, will continue to monitor.
--- NOTE | 2022-04-27 16:25 | CM.DANOTE ---
Initial Discharge Assessment Note: 62 year old female admitted yesterday with swollen tongue and tonsils, diagnosed with peritonsillar abscess. This abscess was not able to be drained. Patient is intubated with family in room. Payer: [facility] [employer] and Self Pay PCP Yanira Hassan Patient lives locally with spouse and is independent and drives. She cares for her grandchildren intermittently. Further workup needed for her abscess, pending. Plan: Discharge when medically stable to care of or transfer to level of care that can perform surgical drainage for abscess per medicine. 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 No History Provided By Family Member,Medical Record Prior Living Arrangements House Household Members spouse Type of transporation used prior to Drives own vehicle admit Independent with ADL's Yes Is patient alert and oriented? 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
--- NOTE | 2022-04-27 17:00 | PM.PN.1 ---
Subjective Subjective Date Patient Seen: 04/27/22 Interval history: Patient remains intubated today. Repeat CT showed smaller wilver-tonsillar abscess, though in discussion with anesthesia there is quite a bit of swelling surrounding her ETT tube. Intubation was difficult. Continues on antibiotics and steroids for swelling. Will continue antibiotics and steroids for now, await improvement in swelling. Will discuss with ENT regarding optimal timing for extubation. Patient is awake and alert today, able to communicate with written communication and nodding appropriately. She has some pain in the middle of her throat, but denies other complaints at this time. Exam Vital Signs (past 8 hours): - 04/27/22 09:30 04/27/22 09:58 04/27/22 09:59 Temperature Pulse Rate 67 64 Respiratory Rate 16 14 Blood Pressure Pulse Oximetry 96 98 Oxygen Delivery Method 04/27/22 09:59 04/27/22 10:00 04/27/22 10:00 Temperature Pulse Rate 63 Respiratory Rate 12 Blood Pressure 90/54 L 129/56 L Pulse Oximetry 97 Oxygen Delivery Method 04/27/22 10:30 04/27/22 10:30 04/27/22 11:00 Temperature Pulse Rate 58 L Respiratory Rate 18 Blood Pressure 116/59 L Pulse Oximetry 98 Oxygen Delivery Method Mechanical Ventilation 04/27/22 11:00 04/27/22 11:00 04/27/22 11:30 Temperature Pulse Rate 55 L Respiratory Rate 18 Blood Pressure 115/59 L 123/58 L Pulse Oximetry 97 Oxygen Delivery Method 04/27/22 11:30 04/27/22 12:00 04/27/22 12:00 Temperature Pulse Rate 60 66 Respiratory Rate 18 23 Blood Pressure 133/63 Pulse Oximetry 97 97 Oxygen Delivery Method 04/27/22 12:30 04/27/22 12:30 04/27/22 13:00 Temperature 95 F L Pulse Rate 62 Respiratory Rate 18 Blood Pressure 117/64 144/67 H Pulse Oximetry 96 Oxygen Delivery Method 04/27/22 13:00 04/27/22 13:30 04/27/22 13:30 Temperature 98.3 F Pulse Rate 66 61 Respiratory Rate 19 18 Blood Pressure 128/60 Pulse Oximetry 97 97 Oxygen Delivery Method 04/27/22 14:00 04/27/22 14:00 04/27/22 14:30 Temperature Pulse Rate 58 L Respiratory Rate 18 Blood Pressure 124/58 L 175/79 H Pulse Oximetry 97 Oxygen Delivery Method 04/27/22 14:30 04/27/22 15:01 04/27/22 15:01 Temperature Pulse Rate 79 76 Respiratory Rate 24 28 H Blood Pressure 162/71 H Pulse Oximetry 95 96 Oxygen Delivery Method 04/27/22 15:30 04/27/22 15:30 04/27/22 15:35 Temperature Pulse Rate 79 72 Respiratory Rate 14 13 Blood Pressure 154/82 H Pulse Oximetry 98 97 Oxygen Delivery Method 04/27/22 15:00 04/27/22 16:00 04/27/22 16:00 Temperature Pulse Rate 73 Respiratory Rate 28 H Blood Pressure 145/93 H Pulse Oximetry 96 Oxygen Delivery Method Mechanical Ventilation 04/27/22 16:03 Temperature Pulse Rate 72 Respiratory Rate 55 H Blood Pressure Pulse Oximetry 95 Oxygen Delivery Method Fraction of Inspired Oxygen 0.75 Oxygen Delivery Method Mechanical Ventilation Narrative Exam Narrative: GEN: Intubated but awake and alert, off sedation, calm and comfortable appearing. HEENT: moist mucous membranes, PERRL CV: regular rate and rhythm, no murmurs PULM: clear bilaterally without wheezing rhonchi or rales. ABD: soft, nontender, nondistended, no organomegaly EXT: warm and well perfused with no edema NEURO: no deficits. alert and able to communicate with a white-board. Objective Labs Result Diagrams: 04/27/22 11:45 04/27/22 02:56 Labs: Laboratory Results - last 24 hr 04/26/22 04/26/22 04/26/22 17:00 17:05 17:05 WBC 19.2 H RBC 3.98 L Hgb 11.8 L Hct 35.6 L MCV 89.3 MCH 29.7 MCHC 33.3 RDW 13.2 Plt Count 228 Neut % (Auto) 93.2 H Lymph % (Auto) 4.4 L [place] % (Auto) 2.2 L Eos % (Auto) 0.0 L Baso % (Auto) 0.2 Neut # (Auto) 33010 H Lymph # (Auto) 800 L [place] # (Auto) 400 Eos # (Auto) 0 Baso # (Auto) 0 ABG pH ABG pCO2 ABG pO2 ABG HCO3 ABG Total CO2 ABG O2 Saturation ABG Base Excess FiO2 Sodium 139 D Potassium 3.5 Chloride 105 Carbon Dioxide 22 BUN 8 Creatinine 0.56 Estimated GFR > 60 BUN/Creatinine Ratio 14.3 Glucose 189 H Lactate Calcium 8.5 Magnesium Total Bilirubin 0.5 AST 23 ALT 26 Alkaline Phosphatase 80 Total Creatine Kinase Total Protein 7.7 Albumin 3.8 Globulin 3.9 Albumin/Globulin Ratio 1.0 TSH Free T4 Nasal Screen MRSA (PCR) Negative for mrsa 04/26/22 04/27/22 04/27/22 17:05 02:04 02:56 WBC 12.4 H RBC 3.06 L Hgb 9.2 L Hct 27.0 L MCV 88.4 MCH 30.2 MCHC 34.1 RDW 12.9 Plt Count 174 Neut % (Auto) 88.6 H Lymph % (Auto) 7.8 L [place] % (Auto) 3.6 Eos % (Auto) 0.0 L Baso % (Auto) 0.0 Neut # (Auto) 48926 H Lymph # (Auto) 1000 L [place] # (Auto) 500 Eos # (Auto) 0 Baso # (Auto) 0 ABG pH 7.49 H ABG pCO2 27.3 L ABG pO2 107 H ABG HCO3 21 L ABG Total CO2 21 ABG O2 Saturation 99 ABG Base Excess -3.0 L FiO2 40 Sodium Potassium Chloride Carbon Dioxide BUN Creatinine Estimated GFR BUN/Creatinine Ratio Glucose Lactate Calcium Magnesium Total Bilirubin AST ALT Alkaline Phosphatase Total Creatine Kinase 133 Total Protein Albumin Globulin Albumin/Globulin Ratio TSH Free T4 Nasal Screen MRSA (PCR) 04/27/22 04/27/22 04/27/22 02:56 02:56 02:56 WBC RBC Hgb Hct MCV MCH MCHC RDW Plt Count Neut % (Auto) Lymph % (Auto) [place] % (Auto) Eos % (Auto) Baso % (Auto) Neut # (Auto) Lymph # (Auto) [place] # (Auto) Eos # (Auto) Baso # (Auto) ABG pH ABG pCO2 ABG pO2 ABG HCO3 ABG Total CO2 ABG O2 Saturation ABG Base Excess FiO2 Sodium 138 Potassium 3.2 L Chloride 110 H Carbon Dioxide 22 BUN 13 Creatinine 0.51 L Estimated GFR > 60 BUN/Creatinine Ratio 25.5 H Glucose 154 H Lactate 1.7 Calcium 7.5 L Magnesium Total Bilirubin AST ALT Alkaline Phosphatase Total Creatine Kinase Total Protein Albumin Globulin Albumin/Globulin Ratio TSH 0.36 L Free T4 2.13 Nasal Screen MRSA (PCR) 04/27/22 04/27/22 02:56 11:45 WBC RBC Hgb 10.0 L Hct 29.3 L MCV MCH MCHC RDW Plt Count Neut % (Auto) Lymph % (Auto) [place] % (Auto) Eos % (Auto) Baso % (Auto) Neut # (Auto) Lymph # (Auto) [place] # (Auto) Eos # (Auto) Baso # (Auto) ABG pH ABG pCO2 ABG pO2 ABG HCO3 ABG Total CO2 ABG O2 Saturation ABG Base Excess FiO2 Sodium Potassium Chloride Carbon Dioxide BUN Creatinine Estimated GFR BUN/Creatinine Ratio Glucose Lactate Calcium Magnesium 2.0 Total Bilirubin AST ALT Alkaline Phosphatase Total Creatine Kinase Total Protein Albumin Globulin Albumin/Globulin Ratio TSH Free T4 Nasal Screen MRSA (PCR) [facility] Social History household members: spouse Smoking Status: Never smoker alcohol intake: current Assessment & Plan Assessment & Plan narrative: # left peritonsillar abscess s/p intubation due to laryngeal swelling -patient noted muffled voice, tongue and left neck swelling for several days -CT neck with complex abscess and extensive laryngeal swelling and 3 cm fluid collection, no extension into the retropharyngeal space -ENT consulted and following, unable to I&D in OR -repeat CT with decrease in size, will continue antibiotics and monitoring for now. Ideally extubate in the AM tomorrow if able, given difficult intubation it is unsafe to attempt extubation overnight. -continue meropenem and clindamycin, spoke with ID at [facility] recommended adding daptomycin and obtaining CT chest to check for extension into mediastinum which did not show extension. -CT chest negative for extension of abscess -continue Decadron 20 mg IV daily -follow-up blood cultures -continue ventilator support -appreciate tele ICU consultation # hypothyroidism, chronic -TSH low normal at 0.36 with normal free t4. -we will continue Synthroid once extubated, no NG tube secondary to tonsillar abscess # hyperlipidemia, chronic -continue Crestor once extubated I spent a total of 35 minutes of critical care time on this patient's care today; this time is exclusive of procedural time. Code status is full code. COVID negative. DVT prophylaxis with heparin subQ. Proxy is Mirza. I have reviewed home meds and used all available resources to reconcile the home meds. Time Spent With Patient Critical Care time: I spent a total of [] minutes of critical care time on this patient's care today; this time is exclusive of procedural time. Quality VTE Deep Vein Thrombosis/Pulmonary Embolism Present on Admission: No
[2022-04-27] MEDS: SODIUM CHLORIDE 0.9% IV (18:26)
[2022-04-27] MEDS: DAPTOMYCIN IV (18:26)
[2022-04-27] MEDS: fentaNYL 100 MCG/2 ML INJ 25 MCG IV ×3 (20:10→23:27)
--- NOTE | 2022-04-27 21:09 | PM.ICURNDS ---
- Date Patient Seen: 04/27/22 Time Patient Seen: 21:00 :: This patient was seen via real time interactive two-way audiovisual telecommunication. Note: 62 y.o. on mechanical ventilation due to L peritonsillar abscess and laryngeal swelling. Today, she had apneic episodes during a SBT and was kept intubated; ENT is assisting with the timing of this. She is currently only on fentanyl IVP PRN for analgosedation and appears comfortable on camera. Vent settings are AC 350 mL FiO2 21% RR 18 PEEP 5. She is meropenem, clindamycin, dexamethasone and daptomycin. No changes to plan @ present; if analgosedation is required tonight, would use Precedex.
[2022-04-27] MEDS: HYDROMORPHONE 0.5 MG INJ IV (22:34)
[2022-04-28] VITALS (56 sets, daily range): BP systolic 87–146; BP diastolic 55–86; PULSE 53–110; RESP 15–47; TEMP 36.2–37.1; O2SAT 93–100
[2022-04-28] MEDS: MEROPENEM 2 GM in SODIUM CHLORIDE 0.9% 100 ML IV ×3 (00:18→16:33)
[2022-04-28] MEDS: HYDROMORPHONE 0.5 MG INJ IV ×4 (00:25→15:54)
[2022-04-28] MEDS: fentaNYL 100 MCG/2 ML INJ 25 MCG IV (03:42)
[2022-04-28 05:18] LABS: Fractionated Inspired Oxygen 21; HCO3 ABG 22 mmol/L (22-26); Oxygen Saturation ABG 95 % (95-100); PCO2 ABG 26.7 mmHg (35-45); PO2 ABG 66 mmHg (80-100); TCO2 ABG 23 mmol/L (21-31); pH ABG 7.53 (7.35-7.45)
[2022-04-28] MEDS: CHLORHEXIDINE GLUCONATE 15 ML CUP PO ×3 (05:43→17:29)
[2022-04-28 06:20] LABS: Add Manual Diff / Slide Review NO; Basophils Absolute Auto 0 /uL (0-100); Basophils Percent Auto 0.1 % (0-2); Eosinophils Absolute Auto 0 /uL (0-450); Hemoglobin 9.8 g/dL (12.0-16.0); Lymphocytes Absolute Auto 1600 /uL (1100-4500); Lymphocytes Percent Auto 11.6 % (25-40); Mean Corpuscular Hemoglobin 29.9 PG (26-34); Mean Corpuscular Volume 88.1 fL (80-100); Monocytes Absolute Auto 600 /uL (0-900); Monocytes Percent Auto 4.8 % (3-14); Neutrophils Absolute Auto 11100 /uL (1500-7000); Neutrophils Percent Auto 83.5 % (50-75); Platelet Count 220 X10^3/uL (150-400); Red Blood Cell Count 3.29 X10^6/uL (4.0-5.2); Red Cell Distribution Width 13.4 % (11.6-14.8); White Blood Cell Count 13.3 X10^3/uL (4.5-11.0)
[2022-04-28 06:34] LABS: Blood Urea Nitrogen 19 mg/dL (7-17); Carbon Dioxide 26 mmol/L (22-32); Chloride 109 mmol/L (98-107); Estimated Glomerular Filt Rate > 60 mL/min (>60); Glucose 110 mg/dL (80-110); HEMOLYSIS 33 (0-50); Potassium 3.6 mmol/L (3.4-5.1); Sodium 139 mmol/L (137-145)
[2022-04-28] MEDS: CLINDAMYCIN 900 MG/50 ML PIGGYBACK 50 MG IV ×2 (08:04→15:49)
[2022-04-28] MEDS: dexAMETHasone 20 MG in SODIUM CHLORIDE 0.9% 50 ML 208 MG IV (09:29)
[2022-04-28] MEDS: FAMOTIDINE 20 MG/2 ML VIAL IV ×2 (09:29→20:34)
[2022-04-28] MEDS: HEPARIN 5,000 UNIT/ML VIAL 5000 UNIT SUBCUT ×2 (09:30→20:34)
--- NOTE | 2022-04-28 09:46 | P.TELICUPN_ITS ---
Subjective Subjective IF CAMERA ACTIVATED, patient seen via real-time interactive audiovisual communication: Camera activated Consent obtained for tele-acrobatic rigger care: Yes Patient Location: ICU Provider location (State): [place] Other participants/roles: na Current Medications Current Medications Medications: Home Medications conjugated estrogens 0.625 mg/gram vaginal cream (Premarin) 1 applic vaginal Q3D 04/26/22 [History Confirmed 04/26/22] fluticasone propionate 50 mcg/actuation nasal spray,suspension 1 spray intranasal DAILY PRN Congestion 04/26/22 [History Confirmed 04/26/22] levothyroxine 88 mcg tablet (Synthroid) 88 mcg PO DAILY 04/26/22 [History Confirmed 04/26/22] loratadine 10 mg tablet 10 mg PO DAILY 04/26/22 [History Confirmed 04/26/22] rosuvastatin 5 mg tablet 5 mg PO DAILY 04/26/22 [History Confirmed 04/26/22] Visit Medications (administered) Generic Name Dose Route Start Last Admin Trade Name Freq PRN Reason Stop Dose Admin Chlorhexidine Gluconate 15 ml 04/27/22 06:00 04/28/22 05:43 Chlorhexidine Gluconate 15 Ml Cup PO 15 ml Q6HR BHARATI Administration Famotidine 20 mg 04/26/22 21:00 04/28/22 09:29 Famotidine 20 Mg/2 Ml Vial IV 20 mg BID BHARATI Administration Fentanyl 25 mcg 04/27/22 15:43 04/28/22 03:42 Fentanyl 100 Mcg/2 Ml Inj IV 25 mcg Q1H PRN Administration Pain, Severe (7-10) Heparin Sodium (Porcine) 5,000 unit 04/26/22 21:00 04/28/22 09:30 Heparin 5,000 Unit/Ml Vial SUBCUT 5,000 unit BID BHARATI Administration Hydromorphone HCl 0.5 mg 04/26/22 07:22 04/28/22 02:24 Hydromorphone 0.5 Mg Inj IV 0.5 mg Q15MIN PRN Administration Pain, Clindamycin Phosphate 900 mg in 50 mls @ 50 mls/hr 04/26/22 16:21 04/28/22 09:46 Cleocin IV Infused Q8H BHARATI Infusion Meropenem 2 gm/ Sodium 100 mls @ 200 mls/hr 04/26/22 16:30 04/28/22 09:24 Chloride IV 200 mls/hr Q8H BHARATI Administration Daptomycin 480 mg/ Sodium 50 mls @ 100 mls/hr 04/26/22 18:00 04/27/22 19:30 Chloride IV Infused Q24H BHARATI Infusion Objective Ventilator Parameters: Ventilator Settings FiO2 21 RT Vent Frequency 18 Ventilator Tidal Volume 350 Exhaled Vt/kg IBW 5.9 Positive End Expiratory 5 Pressure Inspiratory Phase Time 0.9 Patient Position HOB >= 30 degrees Labs Result Diagrams: 04/28/22 06:00 04/28/22 06:00 Labs: Laboratory Results - last 24 hr 04/27/22 04/28/22 04/28/22 11:45 04:51 06:00 WBC 13.3 H RBC 3.29 L Hgb 10.0 L 9.8 L Hct 29.3 L 29.0 L MCV 88.1 MCH 29.9 MCHC 34.0 RDW 13.4 Plt Count 220 Neut % (Auto) 83.5 H Lymph % (Auto) 11.6 L [place] % (Auto) 4.8 Eos % (Auto) 0.0 L Baso % (Auto) 0.1 Neut # (Auto) 10035 H Lymph # (Auto) 1600 [place] # (Auto) 600 Eos # (Auto) 0 Baso # (Auto) 0 ABG pH 7.53 H ABG pCO2 26.7 L ABG pO2 66 L ABG HCO3 22 ABG Total CO2 23 ABG O2 Saturation 95 ABG Base Excess 0.0 FiO2 21 Sodium Potassium Chloride Carbon Dioxide BUN Creatinine Estimated GFR BUN/Creatinine Ratio Glucose Calcium 04/28/22 06:00 WBC RBC Hgb Hct MCV MCH MCHC RDW Plt Count Neut % (Auto) Lymph % (Auto) [place] % (Auto) Eos % (Auto) Baso % (Auto) Neut # (Auto) Lymph # (Auto) [place] # (Auto) Eos # (Auto) Baso # (Auto) ABG pH ABG pCO2 ABG pO2 ABG HCO3 ABG Total CO2 ABG O2 Saturation ABG Base Excess FiO2 Sodium 139 Potassium 3.6 Chloride 109 H Carbon Dioxide 26 BUN 19 H Creatinine 0.50 L Estimated GFR > 60 BUN/Creatinine Ratio 38.0 H Glucose 110 Calcium 8.0 L Exam Vital Signs (past 8 hours): - 04/28/22 03:00 04/28/22 06:00 04/28/22 02:00 Temperature Pulse Rate 64 55 L Respiratory Rate 24 18 Blood Pressure 146/65 H Pulse Oximetry 96 96 Oxygen Delivery Method Mechanical Ventilation Fraction of Inspired Oxygen 21 04/28/22 02:00 04/28/22 02:03 04/28/22 02:00 Temperature Pulse Rate 54 L Respiratory Rate 18 Blood Pressure 113/56 L Pulse Oximetry 95 Oxygen Delivery Method Fraction of Inspired Oxygen 0.21 04/28/22 03:00 04/28/22 04:00 04/28/22 05:00 Temperature 98.8 F Pulse Rate 57 L 60 53 L Respiratory Rate 22 19 18 Blood Pressure 119/59 L 121/58 L 101/56 L Pulse Oximetry 98 95 97 Oxygen Delivery Method Fraction of Inspired Oxygen 0.21 0.21 0.21 04/28/22 02:58 04/28/22 07:00 04/28/22 07:00 Temperature Pulse Rate 54 L 57 L Respiratory Rate 21 19 Blood Pressure 121/56 L Pulse Oximetry 96 97 Oxygen Delivery Method Mechanical Ventilation Fraction of Inspired Oxygen 21 04/28/22 07:39 04/28/22 08:00 04/28/22 08:00 Temperature Pulse Rate 63 59 L Respiratory Rate 19 20 Blood Pressure 130/63 Pulse Oximetry 99 95 Oxygen Delivery Method Fraction of Inspired Oxygen 04/28/22 08:30 04/28/22 09:00 04/28/22 09:01 Temperature Pulse Rate 86 75 65 Respiratory Rate 29 H 38 H 16 Blood Pressure Pulse Oximetry 97 100 99 Oxygen Delivery Method Fraction of Inspired Oxygen 04/28/22 09:01 Temperature Pulse Rate Respiratory Rate Blood Pressure 137/65 Pulse Oximetry Oxygen Delivery Method Fraction of Inspired Oxygen Fraction of Inspired Oxygen 21 Oxygen Delivery Method Mechanical Ventilation Quality TeleICU VTE Deep Vein Thrombosis/Pulmonary Embolism Present on Admission: No Assessment & Plan Assessment & Plan narrative: patient seen with bedside nurse and provider chart/labs/imaging reviewed 62 year old female with peritonsilar abscess requiring intubation for airway protection currently afebirle, HD stable CT abscess size decreasing, see full reportn no air leak noted on bedside eval plan -sedation prn, goal eduardo -1 -vent support, daily sbt trials, keep intubated for now coordinate with ENT -continue steroids, monitor renal function -check final cxs -continue abx -keep glucose 140-180s -replace lyts prn -consider OGT feeds? -monitor ins/outs -gi/dvt ppx -please call eICU if condition changes -d/w Dr. Martinez Time Spent With Patient Critical Care time: I spent a total of [45] minutes of critical care time on this patient's care today; this time is exclusive of procedural time.
[2022-04-28] MEDS: LORazepam 2 MG/ML INJ 0.5 MG IV ×2 (11:19→20:52)
--- NOTE | 2022-04-28 13:17 | DI.RAD.S_ITS ---
PROCEDURE: XR CHEST 1V INDICATIONS: OG tube placement verification TECHNIQUE: One view of the chest was acquired. COMPARISON: [facility], , XR CHEST FOR PICC 1V, 04/27/2022, 14:20. FINDINGS: Surgical changes and devices: Right PICC line is present, unchanged. Nasogastric tube is projecting below the left hemidiaphragm. It appears the side port is at the gastroesophageal junction. Lungs and pleura: Lungs are clear. No pleural effusions or pneumothorax. Mediastinum: Mediastinal contours appear normal. Heart size is normal. Bones and chest wall: No suspicious bony lesions. Overlying soft tissues appear unremarkable. IMPRESSION: Nasogastric tube with side port at the gastroesophageal junction. More ideal placement would be achieved by approximately 6 cm forward advancement. Dictated by: Roya Beauchamp M.D. on 04/28/2022 at 14:14 Approved by: Roya Beauchamp M.D. on 04/28/2022 at 14:18
--- NOTE | 2022-04-28 15:45 | DIET.CONS ---
Dietary Consultation Note Admission Date: 04/26/2022 16:05 Assessment: 62y F admitted for compromised airway from peritonsilar abscess referred to nutrition for initiation of nutrition support via enteral feeding. Pt has been NPO on ventilator just under 48h, pt is conscious, not sedated. Pt not receiving any kcals through propofol nor IVF at this time. Pt with mild hyperglycemia during this hospitalization c BGs 107-156 despite NPO status. Ht: 157.48 cm Wt: 61.5 kg BMI: 24.3 MNA: 13 Jay Score: 21 Labs: RBC 3.29 X10^6/uL (4.0-5.2) L 04/28/22 06:00 Hgb 9.8 g/dL (12.0-16.0) L 04/28/22 06:00 Hct 29.0 % (36-46) L 04/28/22 06:00 Creatinine 0.50 mg/dL (0.52-1.04) L 04/28/22 06:00 Lactate 1.7 mmol/L (0.7-2.1) 04/27/22 02:56 Nutrition Diagnosis: inability to meet PO nutrition needs r/t NPO on vent status Interventions: 1. Recc initiation of continuous enteral feeding via OG tube using Glucerna 1.5 formula. Start feeds at 20mL/h c 160mL free water flushes q4h, increase feed by 10mL q8h as tolerated until reaching goal rate. Goal Rate: Glucerna 1.5 @ 40mL/h c 160mL free water flushes q4h providing 1440kcals (23kcal/kg), 79g PRO (1.3g/kg), 128g CHO, 72g fat, 729mL feed water and 900mL flushes providing total fluid volume of 1689mL fluids (27.5mL/kg). 2. Pt may benefit from IVF or increased free water flushes per hospitalist/hand fur cleaner. EER: 1500kcals (25kcal/kg), 61-67g PRO (1-1.1g/kg), 1,845mL fluids (30mL/kg) Monitoring/Evaluations: following daily Electronically Signed by: Cheri Cm 04/28/22 15:45 Clinical Dietitian [address] [address]
--- NOTE | 2022-04-28 16:26 | PC.NURSE ---
order received for OG tube placement, 14F placed, taped @ 45cm at the teeth. xray confirmation done and recommended advancing the tube 6cm. after this was done taped @ 51cm @ the teeth. Order noted for glucerna tube feed @ initial rate of 20ml/hr increase by c 10ml q8h until goal of 40m/hr. Central line dressing changed per protocol.
--- NOTE | 2022-04-28 17:15 | P.PN_ITS ---
Subjective Subjective Date Patient Seen: 04/28/22 Interval history: Patient remains intubated today. Continues to do well. Discussed with ENT, recommended continued intubation for today, reassess tomorrow. Patient okay for OG placement cautiously. She denies complaints today, other than actually improved throat / neck pain. Exam Vital Signs (past 8 hours): - 04/28/22 09:30 04/28/22 10:00 04/28/22 10:01 Temperature Pulse Rate 67 110 H 75 Respiratory Rate 23 27 H 32 H Blood Pressure Pulse Oximetry 97 99 98 Oxygen Delivery Method Fraction of Inspired Oxygen 04/28/22 10:01 04/28/22 10:48 04/28/22 10:30 Temperature Pulse Rate 64 Respiratory Rate 22 Blood Pressure 141/64 H Pulse Oximetry 97 Oxygen Delivery Method Mechanical Ventilation Fraction of Inspired Oxygen 04/28/22 11:00 04/28/22 11:00 04/28/22 11:30 Temperature Pulse Rate 63 61 Respiratory Rate 18 18 Blood Pressure 117/55 L Pulse Oximetry 95 95 Oxygen Delivery Method Fraction of Inspired Oxygen 04/28/22 12:00 04/28/22 12:00 04/28/22 12:30 Temperature Pulse Rate 59 L 77 Respiratory Rate 18 18 Blood Pressure 113/59 L Pulse Oximetry 95 96 Oxygen Delivery Method Fraction of Inspired Oxygen 04/28/22 13:00 04/28/22 13:01 04/28/22 13:01 Temperature Pulse Rate 68 72 Respiratory Rate 19 18 Blood Pressure 131/63 Pulse Oximetry 96 93 Oxygen Delivery Method Fraction of Inspired Oxygen 04/28/22 13:30 04/28/22 14:00 04/28/22 14:00 Temperature Pulse Rate 62 65 Respiratory Rate 18 17 Blood Pressure 124/60 Pulse Oximetry 96 96 Oxygen Delivery Method Fraction of Inspired Oxygen 04/28/22 15:00 04/28/22 14:30 04/28/22 15:00 Temperature Pulse Rate 83 102 H Respiratory Rate 47 H 28 H Blood Pressure Pulse Oximetry 95 97 Oxygen Delivery Method Mechanical Ventilation Fraction of Inspired Oxygen 04/28/22 15:01 04/28/22 15:01 04/28/22 15:30 Temperature Pulse Rate 71 79 Respiratory Rate 25 H 18 Blood Pressure 135/72 Pulse Oximetry 96 96 Oxygen Delivery Method Fraction of Inspired Oxygen 04/28/22 16:00 04/28/22 16:00 04/28/22 16:00 Temperature 97.2 F L Pulse Rate 68 67 Respiratory Rate 18 17 Blood Pressure 122/86 122/64 Pulse Oximetry 99 96 Oxygen Delivery Method Fraction of Inspired Oxygen 21 04/28/22 16:30 04/28/22 17:00 04/28/22 17:00 Temperature Pulse Rate 62 61 Respiratory Rate 15 25 H Blood Pressure 115/58 L Pulse Oximetry 96 96 Oxygen Delivery Method Fraction of Inspired Oxygen Fraction of Inspired Oxygen 21 Oxygen Delivery Method Mechanical Ventilation Narrative Exam Narrative: GEN: Intubated but awake and alert, off sedation, calm and comfortable appearing. HEENT: moist mucous membranes, PERRL CV: regular rate and rhythm, no murmurs PULM: clear bilaterally without wheezing rhonchi or rales. ABD: soft, nontender, nondistended, no organomegaly EXT: warm and well perfused with no edema NEURO: no deficits. alert and able to communicate with a white-board. Objective Labs Result Diagrams: 04/28/22 06:00 04/28/22 06:00 Labs: Laboratory Results - last 24 hr 04/28/22 04/28/22 04/28/22 04:51 06:00 06:00 WBC 13.3 H RBC 3.29 L Hgb 9.8 L Hct 29.0 L MCV 88.1 MCH 29.9 MCHC 34.0 RDW 13.4 Plt Count 220 Neut % (Auto) 83.5 H Lymph % (Auto) 11.6 L [place] % (Auto) 4.8 Eos % (Auto) 0.0 L Baso % (Auto) 0.1 Neut # (Auto) 59701 H Lymph # (Auto) 1600 [place] # (Auto) 600 Eos # (Auto) 0 Baso # (Auto) 0 ABG pH 7.53 H ABG pCO2 26.7 L ABG pO2 66 L ABG HCO3 22 ABG Total CO2 23 ABG O2 Saturation 95 ABG Base Excess 0.0 FiO2 21 Sodium 139 Potassium 3.6 Chloride 109 H Carbon Dioxide 26 BUN 19 H Creatinine 0.50 L Estimated GFR > 60 BUN/Creatinine Ratio 38.0 H Glucose 110 Calcium 8.0 L PFSH Social History household members: spouse Smoking Status: Never smoker alcohol intake: current Assessment & Plan Assessment & Plan narrative: # left peritonsillar abscess s/p intubation due to laryngeal swelling -patient noted muffled voice, tongue and left neck swelling for several days prior to admission. -CT neck with complex abscess and extensive laryngeal swelling and 3 cm fluid collection, no extension into the retropharyngeal space -ENT consulted and following, unable to I&D in OR after attempt. -repeat CT after OR showed decrease in size, will continue antibiotics and monitoring for now. Will continue intubation today, reassess tomorrow for possible extubation. No definitive way to discern ability to extubate at this time per ENT, other than continued CT imaging which is also not ideal. -continue meropenem and clindamycin, spoke with ID at [facility] recommended adding daptomycin and obtaining CT chest to check for extension into mediastinum which did not show extension. -CT chest negative for extension of abscess -continued Decadron 20 mg IV daily, but will reduce to 10 mg daily. -follow-up blood cultures -continue ventilator support -appreciate tele ICU consultation # hypothyroidism, chronic -TSH low normal at 0.36 with normal free t4. -we will continue Synthroid once extubated, no NG tube secondary to tonsillar abscess # hyperlipidemia, chronic -continue Crestor once extubated I spent a total of 35 minutes of critical care time on this patient's care today; this time is exclusive of procedural time. Code status is full code. COVID negative. DVT prophylaxis with heparin subQ. Proxy is Mirza. I have reviewed home meds and used all available resources to reconcile the home meds. Time Spent With Patient Critical Care time: I spent a total of [] minutes of critical care time on this patient's care today; this time is exclusive of procedural time. Quality VTE Deep Vein Thrombosis/Pulmonary Embolism Present on Admission: No
[2022-04-28] MEDS: SODIUM CHLORIDE 0.9% IV (17:29)
[2022-04-28] MEDS: DAPTOMYCIN IV (17:29)
--- NOTE | 2022-04-28 20:29 | PM.ICURNDS ---
- :: This patient was seen via real time interactive two-way audiovisual telecommunication. patients mental status remains good, and is ocmmunicating via white board. Plan for SBT again in am with leak test. TF to run until midnight. f/u labs and cont steroids / abx.
[2022-04-28] MEDS: SODIUM CHLORIDE 0.9% FLUSH 10 ML IV (20:34)
[2022-04-29] VITALS (33 sets, daily range): BP systolic 72–158; BP diastolic 43–92; PULSE 62–92; RESP 14–35; TEMP 36.2–37.2; O2SAT 92–100
[2022-04-29] MEDS: CLINDAMYCIN 900 MG/50 ML PIGGYBACK 50 MG IV ×3 (00:53→15:45)
[2022-04-29] MEDS: CHLORHEXIDINE GLUCONATE 15 ML CUP PO ×2 (00:53→06:52)
[2022-04-29] MEDS: HYDROMORPHONE 0.5 MG INJ IV (01:20)
[2022-04-29] MEDS: LORazepam 2 MG/ML INJ 0.5 MG IV ×2 (01:32→20:53)
[2022-04-29] MEDS: MEROPENEM 2 GM in SODIUM CHLORIDE 0.9% 100 ML IV ×2 (01:38→09:09)
--- NOTE | 2022-04-29 05:00 | DI.RAD.S_ITS ---
PROCEDURE: XR CHEST 1V INDICATIONS: Intubation TECHNIQUE: One view of the chest was acquired. COMPARISON: [facility], CR, XR CHEST 1V, 04/28/2022, 13:17. [facility], CR, XR CHEST FOR PICC 1V, 04/27/2022, 14:20. FINDINGS: Surgical changes and devices: Enteric tube terminates in the proximal stomach. ET tube terminates in appropriate position. A right PICC terminates in the lower SVC. Lungs and pleura: Possible mild basilar atelectasis. No dense consolidation. No pleural effusions. Mediastinum: Mediastinal contours appear normal. Heart size is normal. Bones and chest wall: No suspicious bony lesions. Overlying soft tissues appear unremarkable. IMPRESSION: ETT terminates in appropriate position Dictated by: Melquiades Nascimento M.D. on 04/29/2022 at 9:20 Approved by: Melquiades Nascimento M.D. on 04/29/2022 at 9:22
[2022-04-29 05:41] LABS: Add Manual Diff / Slide Review NO; Basophils Absolute Auto 0 /uL (0-100); Basophils Percent Auto 0.2 % (0-2); Eosinophils Absolute Auto 0 /uL (0-450); Hematocrit 30.9 % (36-46); Hemoglobin 10.6 g/dL (12.0-16.0); Lymphocytes Absolute Auto 1200 /uL (1100-4500); Lymphocytes Percent Auto 12.5 % (25-40); Mean Corpuscular HGB Conc 34.3 % (30-36); Mean Corpuscular Hemoglobin 30.2 PG (26-34); Mean Corpuscular Volume 87.9 fL (80-100); Monocytes Absolute Auto 600 /uL (0-900); Monocytes Percent Auto 5.5 % (3-14); Neutrophils Absolute Auto 8200 /uL (1500-7000); Neutrophils Percent Auto 81.8 % (50-75); Platelet Count 237 X10^3/uL (150-400); Red Blood Cell Count 3.51 X10^6/uL (4.0-5.2); Red Cell Distribution Width 12.8 % (11.6-14.8)
[2022-04-29 05:43] LABS: BUN Creatinine Ratio 40.4 (6-22); Blood Urea Nitrogen 21 mg/dL (7-17); Calcium 7.7 mg/dL (8.4-10.2); Carbon Dioxide 27 mmol/L (22-32); Chloride 103 mmol/L (98-107); Estimated Glomerular Filt Rate > 60 mL/min (>60); Glucose 127 mg/dL (80-110); HEMOLYSIS 38 (0-50); Potassium 3.9 mmol/L (3.4-5.1); Sodium 136 mmol/L (137-145)
--- NOTE | 2022-04-29 06:41 | PC.NURSE ---
Plastic Tool Maker Note-Patient has been alert and oriented while ventilated, participates in care without restraints. Vent FIO2 .21, TV 350, PEEP 5, RR 15, SpO2 >94%. Had one episode of anxiety and dyspnea, IV Ativan given, IV Dilaudid for throat pain. Tolerating TF, residual 30ml, increased rate to 30ml/hr.
[2022-04-29] MEDS: dexAMETHasone 10 MG in SODIUM CHLORIDE 0.9% 50 ML 208 MG IV (08:36)
[2022-04-29] MEDS: FAMOTIDINE 20 MG/2 ML VIAL IV (08:40)
[2022-04-29] MEDS: HEPARIN 5,000 UNIT/ML VIAL 5000 UNIT SUBCUT ×2 (08:41→20:52)
[2022-04-29] MEDS: SODIUM CHLORIDE 0.9% FLUSH 10 ML IV ×2 (09:10→20:53)
--- NOTE | 2022-04-29 11:26 | SLP.IPNOTE ---
Pt NSG, pt was extubated at 10:00 today (04/29/22). Due to swelling and changes that occur following extubation, clinical swallow evaluation is not recommended until 24 hours following extubation (04/30/22 at 10:00). 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
--- NOTE | 2022-04-29 11:27 | DIET.CONS2 ---
Dietary Inpatient Consultation Note Admission Date: 04/26/2022 16:05 Pt successfully extubated this am awaiting speech therapy consult to assess safest diet for pt. Pt reports to this RD she is lactose intolerant and would love a cup of tomato soup with grilled cheese for lunch if able to eat. Diet: 04/29/22 11:26 NPO Diet Diet Modifications: NPO Type: Strict Nutrition Percent Meal Consumed 0% 04/29/22 08:00 Type of Feeding Tube NG/OG 04/29/22 01:00 Type of Feeding Tube NG/OG 04/28/22 17:26 Type of Feeding Tube NG/OG 04/28/22 16:05 Electronically Signed by: Cheri Cm 04/29/22 11:27 Clinical Dietitian [address] [address]
--- NOTE | 2022-04-29 15:00 | P.TELICUPN_ITS ---
Subjective Subjective IF CAMERA ACTIVATED, patient seen via real-time interactive audiovisual communication: Camera activated Consent obtained for tele-web manager care: Yes Patient Location: ICU Provider location (State): [place] Other participants/roles: rn Interval history: patient awake and alert, 50% leak today, extubated successfully Current Medications Current Medications Medications: Home Medications conjugated estrogens 0.625 mg/gram vaginal cream (Premarin) 1 applic vaginal Q3D 04/26/22 [History Confirmed 04/26/22] fluticasone propionate 50 mcg/actuation nasal spray,suspension 1 spray intranasal DAILY PRN Congestion 04/26/22 [History Confirmed 04/26/22] levothyroxine 88 mcg tablet (Synthroid) 88 mcg PO DAILY 04/26/22 [History Confirmed 04/26/22] loratadine 10 mg tablet 10 mg PO DAILY 04/26/22 [History Confirmed 04/26/22] rosuvastatin 5 mg tablet 5 mg PO DAILY 04/26/22 [History Confirmed 04/26/22] Visit Medications (administered) Generic Name Dose Route Start Last Admin Trade Name Freq PRN Reason Stop Dose Admin Fentanyl 25 mcg 04/27/22 15:43 04/28/22 03:42 Fentanyl 100 Mcg/2 Ml Inj IV 25 mcg Q1H PRN Administration Pain, Severe (7-10) Heparin Sodium (Porcine) 5,000 unit 04/26/22 21:00 04/29/22 08:41 Heparin 5,000 Unit/Ml Vial SUBCUT 5,000 unit BID BHARATI Administration Heparin Sodium (Porcine) 50 unit 04/28/22 19:36 04/28/22 20:34 Heparin Flush (Cl/Picc/Mid-Line) 50 Unit/5 Ml Syringe IV 50 unit PRN PRN Administration Flush Hydromorphone HCl 0.5 mg 04/26/22 07:22 04/29/22 01:20 Hydromorphone 0.5 Mg Inj IV 0.5 mg Q15MIN PRN Administration Pain, Clindamycin Phosphate 900 mg in 50 mls @ 50 mls/hr 04/26/22 16:21 04/29/22 10:47 Cleocin IV Infused Q8H BHARATI Infusion Dexamethasone 10 mg/ Sodium 51 mls @ 208 mls/hr 04/29/22 09:00 04/29/22 10:48 Chloride IV Infused DAILY BHARATI Infusion Lorazepam 0.5 mg 04/28/22 10:08 04/29/22 01:32 Lorazepam 2 Mg/Ml Inj IV 0.5 mg Q4HR PRN Administration Anxiety Sodium Chloride 10 ml 04/28/22 21:00 04/29/22 09:10 Sodium Chloride 0.9% Flush IV 10 ml BID BHARATI Administration Objective Ventilator Parameters: Ventilator Settings FiO2 21 RT Vent Frequency 15 Ventilator Tidal Volume 350 Exhaled Vt/kg IBW 5.9 Positive End Expiratory 5 Pressure Inspiratory Phase Time 0.9 I:E Ratio 1:3.4 Patient Position HOB >= 30 degrees Labs Result Diagrams: 04/29/22 05:00 04/29/22 05:00 Labs: Laboratory Results - last 24 hr 04/29/22 04/29/22 05:00 05:00 WBC 10.0 RBC 3.51 L Hgb 10.6 L Hct 30.9 L MCV 87.9 MCH 30.2 MCHC 34.3 RDW 12.8 Plt Count 237 Neut % (Auto) 81.8 H Lymph % (Auto) 12.5 L [place] % (Auto) 5.5 Eos % (Auto) 0.0 L Baso % (Auto) 0.2 Neut # (Auto) 8200 H Lymph # (Auto) 1200 [place] # (Auto) 600 Eos # (Auto) 0 Baso # (Auto) 0 Sodium 136 L Potassium 3.9 Chloride 103 Carbon Dioxide 27 BUN 21 H Creatinine 0.52 Estimated GFR > 60 BUN/Creatinine Ratio 40.4 H Glucose 127 H Calcium 7.7 L Exam Vital Signs (past 8 hours): - 04/29/22 07:04 04/29/22 07:04 04/29/22 09:53 Temperature 99.0 F Pulse Rate 76 Respiratory Rate 23 Blood Pressure 115/56 L Pulse Oximetry 96 Oxygen Delivery Method Oxygen Flow Rate 04/29/22 08:00 04/29/22 08:00 04/29/22 09:00 Temperature Pulse Rate 91 H 88 Respiratory Rate 32 H 32 H Blood Pressure 158/76 H Pulse Oximetry 97 96 Oxygen Delivery Method Oxygen Flow Rate 04/29/22 09:01 04/29/22 09:01 04/29/22 09:00 Temperature Pulse Rate 78 Respiratory Rate 14 Blood Pressure 142/70 H Pulse Oximetry 96 Oxygen Delivery Method Mechanical Ventilation Oxygen Flow Rate 04/29/22 10:00 04/29/22 10:00 04/29/22 10:42 Temperature Pulse Rate 79 84 70 Respiratory Rate 20 26 H 22 Blood Pressure 142/70 H 114/72 Pulse Oximetry 92 97 97 Oxygen Delivery Method Oxygen Flow Rate 04/29/22 10:44 04/29/22 11:45 Temperature 98.8 F Pulse Rate 72 Respiratory Rate 15 Blood Pressure 127/60 126/69 Pulse Oximetry 97 Oxygen Delivery Method Oxygen Flow Rate 0 Fraction of Inspired Oxygen 21 Oxygen Delivery Method Mechanical Ventilation Oxygen Flow Rate 0 Narrative Exam Narrative: surrogate for exam is primary team Quality TeleICU VTE Deep Vein Thrombosis/Pulmonary Embolism Present on Admission: No Assessment & Plan Assessment & Plan narrative: 62 year old female with peritonsilar abscess and acute respiraptry afilure requiring intubation for airway protection currently afebirle, HD stable CT abscess size decreasing, see full reportn no air leak noted on bedside eval plan - extubated to NC -continue steroids, monitor renal function -check final cxs -continue abx per ID -keep glucose 140-180s -replace lyts prn - speech and swallow eval- adat -monitor ins/outs -gi/dvt ppx -please call eICU if condition changes -d/w Dr. Martinez total CCT 35 min Time Spent With Patient Critical Care time: I spent a total of [] minutes of critical care time on this patient's care today; this time is exclusive of procedural time.
--- NOTE | 2022-04-29 17:02 | PM.PN.1 ---
Subjective Subjective Date Patient Seen: 04/29/22 Interval history: Patient had improving throat pain today. Was extubated this morning while rounding with tele-art appraiser. Speech unable to see but tolerated bedside swallow and now on a diet. She continues to feel well but with mild throat pain. Voice is a bit muffled but much improved. Exam Vital Signs (past 8 hours): - 04/29/22 09:53 04/29/22 10:00 04/29/22 10:00 Temperature 99.0 F Pulse Rate 79 84 Respiratory Rate 20 26 H Blood Pressure 142/70 H Pulse Oximetry 92 97 Oxygen Flow Rate 04/29/22 10:42 04/29/22 10:44 04/29/22 11:45 Temperature 98.8 F Pulse Rate 70 72 Respiratory Rate 22 15 Blood Pressure 114/72 127/60 126/69 Pulse Oximetry 97 97 Oxygen Flow Rate 0 Fraction of Inspired Oxygen 21 Oxygen Delivery Method Mechanical Ventilation Oxygen Flow Rate 0 Narrative Exam Narrative: GEN: Intubated but awake and alert, off sedation, calm and comfortable appearing. HEENT: moist mucous membranes, PERRL CV: regular rate and rhythm, no murmurs PULM: clear bilaterally without wheezing rhonchi or rales. ABD: soft, nontender, nondistended, no organomegaly EXT: warm and well perfused with no edema NEURO: no deficits. alert and able to communicate with a white-board. Objective Labs Result Diagrams: 04/29/22 05:00 04/29/22 05:00 Labs: Laboratory Results - last 24 hr 04/29/22 04/29/22 05:00 05:00 WBC 10.0 RBC 3.51 L Hgb 10.6 L Hct 30.9 L MCV 87.9 MCH 30.2 MCHC 34.3 RDW 12.8 Plt Count 237 Neut % (Auto) 81.8 H Lymph % (Auto) 12.5 L [place] % (Auto) 5.5 Eos % (Auto) 0.0 L Baso % (Auto) 0.2 Neut # (Auto) 8200 H Lymph # (Auto) 1200 [place] # (Auto) 600 Eos # (Auto) 0 Baso # (Auto) 0 Sodium 136 L Potassium 3.9 Chloride 103 Carbon Dioxide 27 BUN 21 H Creatinine 0.52 Estimated GFR > 60 BUN/Creatinine Ratio 40.4 H Glucose 127 H Calcium 7.7 L PFSH Social History household members: spouse Smoking Status: Never smoker alcohol intake: current Assessment & Plan Assessment & Plan narrative: # left peritonsillar abscess s/p intubation due to laryngeal swelling -patient noted muffled voice, tongue and left neck swelling for several days prior to admission. -CT neck with complex abscess and extensive laryngeal swelling and 3 cm fluid collection, no extension into the retropharyngeal space -ENT consulted and following, unable to I&D in OR after attempt. -repeat CT after OR showed decrease in size, will continue antibiotics and monitoring for now. Extubated today to nasal cannula, doing well after. Okay for downgrade out of ICU. -continued meropenem and clindamycin, spoke with ID at [facility] recommended adding daptomycin and obtaining CT chest to check for extension into mediastinum which did not show extension. Will narrow to clindamycin only, plan 14 day total therapy course given patient's hospital course. -CT chest negative for extension of abscess -continued Decadron 20 mg IV daily, but reduced to 10 mg daily. Can start to taper over the coming days and can discharge on prednisone taper when ready. -appreciate tele ICU consultation # hypothyroidism, chronic -TSH low normal at 0.36 with normal free t4. -we will continue Synthroid once extubated, no NG tube secondary to tonsillar abscess # hyperlipidemia, chronic -continue Crestor once extubated I spent a total of 35 minutes of critical care time on this patient's care today; this time is exclusive of procedural time. Code status is full code. COVID negative. DVT prophylaxis with heparin subQ. Proxy is Mirza. I have reviewed home meds and used all available resources to reconcile the home meds. Dispo: stable for floor. Possible discharge home tomorrow if she remains stable. Time Spent With Patient Critical Care time: I spent a total of [] minutes of critical care time on this patient's care today; this time is exclusive of procedural time. Quality VTE Deep Vein Thrombosis/Pulmonary Embolism Present on Admission: No
[2022-04-30] VITALS: PULSE 69; O2SAT 97
[2022-04-30] MEDS: CLINDAMYCIN 900 MG/50 ML PIGGYBACK 50 MG IV ×2 (00:04→08:17)
[2022-04-30] MEDS: guaiFENesin ER 600 MG TAB PO (00:10)
[2022-04-30 04:00] VITALS: BP 119/56; PULSE 71; RESP 18; TEMP 36.9; O2SAT 93
[2022-04-30] MEDS: LEVOTHYROXINE 88 MCG TABLET PO (06:12)
[2022-04-30 08:00] VITALS: BP 128/70; PULSE 62; RESP 18; TEMP 36.2; O2SAT 95
[2022-04-30] MEDS: dexAMETHasone 10 MG in SODIUM CHLORIDE 0.9% 50 ML 208 MG IV (08:17)
[2022-04-30] MEDS: HEPARIN 5,000 UNIT/ML VIAL 5000 UNIT SUBCUT (08:18)
--- NOTE | 2022-04-30 09:02 | SLP.IPNOTE ---
Consulted with nursing re: pt's tolerance of PO regular texture and thin liquids. Nursing reported that pt is eating and drinking without difficulty and no s/sx aspiration. Spoke with Dr. Martinez about canceling order, to which he agreed. Will discharge pt at this time.
--- NOTE | 2022-04-30 10:39 | P.DS_ITS ---
History of Present Illness History of Present Illness Date Patient Seen: 04/30/22 Time Patient Seen: 10:40 Chief complaint: swollen tongue/tonsils Narrative: Per Dr. Roberto, Percy Morrison is a 62yo F with a PMH of hypothyroidism and HLD who presented to the ED with increased tongue and neck swelling as well as muffled voice over several days. CT neck showed left peritonsillar abscess with 3cm fluid collection. [facility] contacted for possible transfer but was denied due to lack of beds. ENT consulted who intubated pt and took to the OR for I&D however they were unable to locate a fluid collection to drain. Patient then transferred up to ICU intubated for monitoring and started on IV clinda and meropenem. Received 20mg IV decadron in ED. At bedside patient is intubated. Unable to obtain further history due to this. Discharge Providers Provider Date of admission: 04/26/22 16:05 Discharge Date: 04/30/22 Primary care physician: Yanira Hassan Consults: 04/26/22 16:38 Consult to Tele-health services administrator Routine Comment: Consulting Provider: Nicole Tele-intensivists Reason for consultation: Small Brake Form Operator services 04/26/22 16:45 Consult to Physician Routine Comment: Consulting Provider: John Guzman Reason for consultation: peritonsillar abscess 04/27/22 01:55 Consult to Dietitian, Adult Routine Comment: Reason For Exam: Patient on Ventilator and NPO 04/27/22 13:02 Consult After Hours PICC Line RN Routine Comment: 04/29/22 09:39 Consult to Speech Therapy Evaluate & Treat Comment: extubated, peritonsillar abscess Physician Instructions: Evaluate and treat Discharge provider: Francesco Martinez DO Summary Hospital Course Discharge Diagnosis: # left peritonsillar abscess s/p intubation due to laryngeal swelling # hypothyroidism, chronic # hyperlipidemia, chronic #acute respiratory failure with hypoxia Hospital Course: This is a 62 year old female admitted with acute respiratory failure and hypoxia due to a peritonsillar abscess with laryngeal edema that necessitate airway protection with intubation in the emergency room. She was started on broad spectrum antibiotics per ID recommendations initially, as well as steroids for her edema. She went to the OR with ENT for abscess drainage but fluid pocket could not be found. [facility] recommended repeat CT imaging to reassess the abscess. The abscess had decreased in size on repeat imaging so she was not accepted for transfer and remained here intubated for a few days to allow swelling to continue to improve. She was finally extubated and did very well. Her antibiotics were narrowed to clindamycin. Her insurance required prior authorization for ENT follow up, so she is recommended to follow up as soon as possible with her PCP for further referral to ENT as an outpatient. Time Spent with Patient Time spent: Greater than 30 minutes Exam Vital Signs (past 8 hours): - 04/30/22 04:00 04/30/22 08:00 Temperature 98.5 F 97.1 F L Pulse Rate 71 62 Respiratory Rate 18 18 Blood Pressure 119/56 L 128/70 Pulse Oximetry 93 95 Oxygen Flow Rate 0 Fraction of Inspired Oxygen 21 Oxygen Delivery Method Room Air Oxygen Flow Rate 0 Narrative Exam Narrative: GEN: WDWN female, no acute distress, smiling. HEENT: moist mucous membranes, PERRL CV: regular rate and rhythm, no murmurs PULM: clear bilaterally without wheezing rhonchi or rales. ABD: soft, nontender, nondistended, no organomegaly EXT: warm and well perfused with no edema NEURO: no deficits. alert and oriented x3. Objective Labs Result Diagrams: 04/29/22 05:00 04/29/22 05:00 [facility] Social History household members: spouse Smoking Status: Never smoker alcohol intake: current Discharge Plan Discharge Plan Patient Disposition: Home Provider Discharge Comment: You were admitted to the hospital with a peritonsi llar abscess. Please follow up with your PCP as soon as possible for referral to ENT / prior authorization if necessary based on their evaluation as you are continuing to improve. Continue antibiotics for another two weeks. Watch for worsening diarrhea, if more than 3 stools a day that are loose follow up with your PCP to check for C. diff infection. Take a probiotic or tamazight yogurt for possible c. diff protection. Discharge orders & Medications Prescriptions: New clindamycin HCl 300 mg capsule 300 mg PO Q6H 14 Days Qty: 56 0RF trazodone 100 mg tablet 100 mg PO BEDTIME PRN (Reason: insomnia) 30 Days Qty: 30 0RF prednisone 10 mg tablet 10 mg PO DAILY Qty: 14 0RF Rx Instructions: take 40 mg daily x2 days, 20 mg daily x 2 days, then 10 mg daily x2 days then stop. Continued levothyroxine [Synthroid] 88 mcg tablet 88 mcg PO DAILY rosuvastatin 5 mg tablet 5 mg PO DAILY Premarin 0.625 mg/gram cream 1 applic vaginal Q3D loratadine 10 mg tablet 10 mg PO DAILY fluticasone propionate 50 mcg/actuation spray,suspension 1 spray INTRANASAL DAILY PRN (Reason: Congestion) Medication counseling provided by Pharmacist: Yes Follow up/Referrals: Yanira Hassan [Primary Care Provider] - 3-5 Days Diet/Activity/Treatments Diet: Diet as Tolerated Activity: As tolerated Discharge Data Primary Care Provider: Yanira Hassan Quality VTE Deep Vein Thrombosis/Pulmonary Embolism Present on Admission: No
--- NOTE | 2022-06-01 08:14 | OP_ITS ---
DATE OF SERVICE: PREOP DIAGNOSIS: Peritonsillar abscess. Parapharyngeal abscess left side. OPERATIVE FINDINGS: Swollen left posterior tonsillar pillar. 2+ right tonsil, 4+ left tonsil size cryptic inflammation. Scant fluid purulence in the left swollen tonsil parapharyngeal area. ESTIMATED BLOOD LOSS: 5 mL. DESCRIPTION OF PROCEDURE: With the patient supine on the operating table, general oral tracheal anesthesia was utilized and oral tracheal intubation was performed. Tonsil tongue gag tongue retractor was positioned. The tongue and soft palate were retracted. The nasopharynx normal. There is swelling in the posterior tonsillar pillar and the soft palate on the left side. Exploration incision, possible drainage and attempted drainage with an 18 gauge needle 5 mL syringe returned scant purulent material and fluid without finding a large pocket of material. Consequently, the intubation was decided to be continued for airway protection and the oral tracheal tube was secured. The procedure was terminated and the patient turned over for anesthesia for emergency anesthetics without known complications. Percy Morrison - GLENN/marcela/ally doc#: [id number]/job#: [id number] dd: 05/25/2022 08:41:00 dt: 05/30/2022 11:15:00 DICTATING MD/COPIES TO: Roberto Figueredo MD COPIES MNE: DEVORAH;
== END 2022-04-30 11:35 | disposition home or self-care (01) | DRG 152 ==
LOC: ED 16:04 → AC 16:10 → ICU 04-27 08:31
PROVIDERS: Nurse Practitioner Family; Otolaryngology Facial Plastic Surgery; Admitting Provider Student in an Organized Health Care Education/Training Program; Emergency Provider Emergency Medicine; PCP Family Medicine; Referring Provider Emergency Medicine; Visit Provider Student in an Organized Health Care Education/Training Program
PROC: 5A1945Z Respiratory Ventilation, 24-96 Consecutive Hours (ICD-10-PCS; CPT 42700; principal; 2022-04-26 14:30)
DX: J36 Peritonsillar abscess (principal); J96.01 Acute respiratory failure with hypoxia; E03.9 Hypothyroidism, unspecified; E78.5 Hyperlipidemia, unspecified; Z20.822 Contact with and (suspected) exposure to COVID-19
CPT/HCPCS: 00170; 36415; 36592; 36600; 70491; 71045; 71250; 80048; 80053; 82550; 82805; 82962; 83605; 83690; 83735; 84145; 84439; 84443; 85007; 85014; 85018; 85025; 87040; 87070; 87205; 87635; 87797; 93005; 94002; 94003; 94640; 94799; 96365; 96367; 96372; 96375; 96376; 99285; 99291; C9803; J0171; J0330; J0878; J1100; J1170; J1200; J1642; J1644; J2060; J2185; J2405; J2704; J2930; J3010; Q9967

== ENCOUNTER → 2022-07-23 | Outpatient (CLI) | payer OTHER, SELFPAY ==
[2022-04-26 16:14] VITALS: BMI 24.3
[2022-04-29 05:45] VITALS: PULSE 69
[2022-04-29 08:48] VITALS: RESP 23; O2SAT 97
--- NOTE | 2022-07-23 15:54 | DI.MG.S_ITS ---
BILATERAL DIGITAL SCREENING MAMMOGRAM 3D/2D WITH CAD: 07/23/2022 CLINICAL: Routine screening. Comparison is made to exams dated: 07/01/2021 mammogram, 06/20/2020 mammogram - [facility], and 02/07/2019 specimen - [facility]. Both breasts are heterogeneously dense, which may obscure small masses (category c / 51-75% glandular tissue). Current study was also evaluated with a Computer Aided Detection (CAD) system. There is a biopsy clip in the left breast. No significant masses, calcifications, or other findings are seen in either breast. There has been no significant interval change. IMPRESSION: NEGATIVE There is no mammographic evidence of malignancy. A 1 year screening mammogram is recommended. Based on the Tyrer Cuzick model (a risk assessment model) the patient's lifetime risk is 10.5% and her 10 year risk is 4.6%. According to the ACR, ACS, and NCCN guidelines, an annual breast MRI exam along with mammogram is recommended if the patient's lifetime risk is 20% or greater. This exam was interpreted at Station ID: [id number]. NOTE: For mammograms, a report in lay terms will be sent to the patient. Approximately 15% of breast malignancies will not be visualized mammographically. In the management of a palpable breast mass, a negative mammogram must not discourage biopsy of a clinically suspicious lesion. Electronically Signed By: Nadja mcpherson/bc:07/24/2022 12:14:54 letter sent: Normal Exam ACR BI-RADS Category 1: Negative 3341F
== END ==
LOC: MAMMO 15:53
PROVIDERS: PCP Family Medicine; Referring Provider Family Medicine; Visit Provider Family Medicine
DX: Z12.31 Encounter for screening mammogram for malignant neoplasm of breast (principal)
CPT/HCPCS: 77063; 77067

== ENCOUNTER 2023-06-21 09:30 | Outpatient (RCR) | payer OTHER, SELFPAY ==
[2022-04-26 16:14] VITALS: BMI 24.3
[2022-04-29 05:45] VITALS: PULSE 69
[2022-04-29 08:48] VITALS: RESP 23; O2SAT 97
--- NOTE | 2023-06-14 12:55 | OT.OP.EVAL ---
Visit Care Team Role Provider Type Adriano Aguilar PA-C Attending Provider Non-Staff Family Provider Primary Care Provider Referring Provider Specialty: Medical Address: [address] [place] [address], [phone] Phone: Email: Occupational Therapy Initial Evaluation OT Outpatient Adult Evaluation Start: 06/14/23 12:22 Freq: Status: Active Protocol: Document 06/14/23 12:23 AMS (Rec: 06/14/23 12:55 AMS [id number]) General Information - Adult Visit Number EVAL; 0/12 Plan of Care Dates 06/14/23 - 07/26/23 Insurance Information Prime; EVAL CHARGE ONLY; *Auth x 12 visits Visit Start Time 09:30 Visit Stop Time 10:15 Total Visit Minutes 45 Treatment Setting Outpatient Care Note Type Initial Evaluation Identification Confirmed Yes Identification Confirmed By Self Goals Ceo Na Goals 1. Percy will be modified independent with execution of home exercise program utilizing provided written and visual instructions as needed . 2. Percy will verbalize 100% understanding of basic joint protection principles referencing provided written/ visual materials as needed. 3. Percy will be able to verbally identify/have been education regarding 2 to 3 different conservative pain/ discomfort/range of motion techniques that she can utilize in the home (e. g., paraffin, heat). Assessment/Plan Treatment Assessment Percy is a 63 year-old right hand dominant female referred to outpatient OT secondary to bilateral hand pain. Medical history is significant for arthritis, back pain, thyroid disorder. Denied any recent x- rays of hands. 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 She is using a prescribed ointment for pain management and tiger balm. She denied use of splints in the day time; she does use splints at night. QuickDASH UE Outcome Measure Score = 20.45. Pain Assessment Grid Findings : indication of 3 out of 10 relative to bilateral IPJ; 2 out of 10 relative to volar surfaces of middle phalanx vs PIPJs bilaterally 2-5 digits; 1 out of 10 relative to dorsal DIPJs of L 3rd, 4th, and 5th digits and R 4th and 5th digits; and 2 out of 10 relative to dorsal DIPJs L 2nd digit and DIPJs R 2nd and 3rd digits. Ulnar rotation of distal phalanx at 2nd DIPJs bilaterally (R > L). Medial rotation distal phalanx at bilateral IPJs of thumbs. Beginning of hyperext at PIPJs of 3rd digits (R > L). 50 degrees active R thumb radial abduction vs 55 degrees active L thumb radial abduction. (+) thumb adductor tightness (R > L) noted w/ palpation. Dynamometer II Strength Testing Results = 35.0# of force R wholesale and retail merchant (compared to 60- 64 y.o. women mean 55.1 +/- 10 .1) vs 25.0# of force L wholesale and retail merchant ( compared to 60-64 y.o. women mean 45.7 +/- 10.1). Pinchometer Strength Testing Results = 12.0# of force R lateral bowens pinch (compared to 60-64 y.o. women mean 15.5 +/ - 2.7) vs 12.5# of force ( compared to 60-64 y.o. women mean 14.1 +/- 2.5); 7.0# of force R 3-jaw pinch (compared to 60-64 y.o. women mean 14.8 +/- 3.1) vs 7.5# of force L 3- jaw pinch (compared to 60-64 y .o. women mean 14.3 +/- 2.7); 5.5# of force R tip pinch ( compared to 60-64 y.o. women mean 10.1 +/- 2.1) vs 8.0# of force L tip pinch (compared to 60-64 y.o. women mean 9.9 +/- 2.0). No c/o or nonverbal signs of pain/discomfort w/ wholesale and retail merchant/pinch strength testing. Outpatient OT is recommended for joint protection education , development of gentle home strengthening program, discussion re: AE and/or compensatory strategies/ techniques, and to address conservative measures of pain/ discomfort/decreased flexibility (e.g., paraffin, heat). Recommend referral to [facility] for custom-made splint(s) as deemed appropriate by clinician (w/ consideration of bilateral 2nd DIPJ splints given joint deformities). Home Exercise Program 06/14/23 = Instructed in bilateral self-myofascial stretch; 20 sec hold -> switch repeat to address thumb adductor tightness w/ rec to execute daily/as needed. Instructed in gentle thumb ext strengthening w/ slight IPJ flexion w/ use of strip of TB# 1 vs rubberband and gentle thumb palmar abduction strengthening w/ use of strip of TB#1, 3 x 10 repetitions, 3 x a week vs every other day. Length of treatment (weeks) 6 Plan of Care Start Date 06/14/23 Plan of Care End Date 07/26/23 Treatment Frequency Once a Week Therapeutic Contents Active Range of Motion, Adaptive Equipment Education, Client Education,Functional Activities,Home Exercise Program,Joint Protection, Manual Therapy,Education, Neurodevelopment Treatment, Neuromuscular Re-Education, Self-Care,Stretching/ Flexibility Activities, Therapeutic Activities, Therapeutic Exercises, Modalities Modalities As Needed,As Prescribed Additional Types of Modalities Heat/Ice/Paraffin Bath/ Ultrasound Other Suggested Referrals Referral to [facility] for custom- made orthotic/splint
--- NOTE | 2023-06-21 15:35 | OT.OP.TRT ---
Visit Care Team Role Provider Type Adriano Aguilar PA-C Attending Provider Non-Staff Family Provider Primary Care Provider Referring Provider Specialty: Medical Address: [address] [place] [address], [id number] Phone: Email: Occupational Therapy Treatment Note OT Outpatient Treatment Note - Adult Start: 06/14/23 12:22 Freq: Status: Active Protocol: Document 06/21/23 15:20 AMS (Rec: 06/21/23 15:34 AMS [id number]) OT Outpatient Adult Treatment Note Session Time Visit Start Time 09:30 Visit Stop Time 10:00 Total Visit Minutes 30 Visit Information Visit Number 08/13 Plan of Care Dates 06/14/23 - 07/26/23 Insurance Information Prime; EVAL CHARGE ONLY; *Auth x 12 visits Setting Treatment Setting Outpatient Care Visit Type Note Type Treatment Note General Information General Information Percy is a 63 year-old right hand dominant female referred to outpatient OT secondary to bilateral hand pain. Medical history is significant for arthritis, back pain, thyroid disorder. Denied any recent x- rays of hands. 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 She is using a prescribed ointment for pain management and tiger balm. She denied use of splints in the day time; she does use splints at night. - Subjective Identification Type Name Identification Reconciled With Medical Record Observations (+) compliance w/ self- myofascial release and use of TB #1 strips for gentle thumb ext and thumb palmar abduction strengthening. Patient/Caregiver Compliance with Home Excellent Exercise Program - Objective Objective Measurements Please refer to below for progress towards meeting established OT goals: Residential Goals 1. Percy will be modified independent with execution of home exercise program utilizing provided written and visual instructions as needed . 2. Percy will verbalize 100% understanding of basic joint protection principles referencing provided written/ visual materials as needed. 3. Percy will be able to verbally identify/have been education regarding 2 to 3 different conservative pain/ discomfort/range of motion techniques that she can utilize in the home (e. g., paraffin, heat). - Treatment 1 Descriptor Ultrasound. Address muscular tightness of thumb adductor. x 10 minutes. Completed bilaterally. 20% duty cycle. 2 .0 w/cm2. Skin intact pre- and post- treatment. No c/o pain/ discomfort. Decreased tightness in thumb webspace noted bilaterally post- modality use. Exercises 1 Descriptor Reviewed self-myofascial release. Provided w/ written and visual instructions for home exercise program. - Assessment Assessment of Improvement (+) response to ultrasound; decreased tightness of bilateral thumb webspaces palpated bilaterally post- treatment. Provided w/ written /visual instructions for bilateral thumb webspace self- myofascial release, gentle thumb palmar abduction and thumb extensor strengthening, and tendon glides. dyeing machine feeder staff to scan the HEP into the EMR when able to do so. Percy denied any questions regarding home exercise program; next scheduled appointment is scheduled in August. Therapist to follow-up w/ outpatient clinic insurance agency manager to determine if new referral will need to be obtained from PCP and/or therapist can cont to treat with current insurance authorization w/ new POC. Home Exercise Program 06/21/23 = Provided w/ written /visual instructions for bilateral thumb webspace self- myofascial release, gentle thumb palmar abduction and thumb extensor strengthening, and tendon glides. dyeing machine feeder staff to scan HEP into EMR when able to do so. 06/14/23 = Instructed in bilateral self-myofascial stretch; 20 sec hold -> switch repeat to address thumb adductor tightness w/ rec to execute daily/as needed. Instructed in gentle thumb ext strengthening w/ slight IPJ flexion w/ use of strip of TB# 1 vs rubberband and gentle thumb palmar abduction strengthening w/ use of strip of TB#1, 3 x 10 repetitions, 3 x a week vs every other day. - Plan Additional Therapy Recommendations Will follow-up w/ outpatient insurance agency manager Other Referrals Referral to [facility] for custom- made orthotic/splint
--- NOTE | 2023-08-09 09:51 | OT.OP.DC ---
Visit Care Team Role Provider Type Adriano Aguilar PA-C Attending Provider Non-Staff Family Provider Primary Care Provider Referring Provider Address: [address] [place] [address], [id number] Phone: Email: OT Outpatient OT Outpatient Adult Evaluation Start: 06/14/23 12:22 Freq: Status: Active Protocol: Document 06/14/23 12:23 AMS (Rec: 06/14/23 12:55 AMS [id number]) General Information - Adult Visit Information Visit Number EVAL; 0/12 Plan of Care Dates 06/14/23 - 07/26/23 Insurance Information Prime; EVAL CHARGE ONLY; *Auth x 12 visits Session Time Visit Start Time 09:30 Visit Stop Time 10:15 Total Visit Minutes 45 Setting Treatment Setting Outpatient Care Visit Type Note Type Initial Evaluation Identification Identification Confirmed Yes Identification Confirmed By Self Goals Local Coordinator Goals Local Coordinator Goals 1. Percy will be modified independent with execution of home exercise program utilizing provided written and visual instructions as needed . 2. Percy will verbalize 100% understanding of basic joint protection principles referencing provided written/ visual materials as needed. 3. Percy will be able to verbally identify/have been education regarding 2 to 3 different conservative pain/ discomfort/range of motion techniques that she can utilize in the home (e. g., paraffin, heat). Assessment/Plan Assessment Treatment Assessment Percy is a 63 year-old right hand dominant female referred to outpatient OT secondary to bilateral hand pain. Medical history is significant for arthritis, back pain, thyroid disorder. Denied any recent x- rays of hands. 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 She is using a prescribed ointment for pain management and tiger balm. She denied use of splints in the day time; she does use splints at night. QuickDASH UE Outcome Measure Score = 20.45. Pain Assessment Grid Findings : indication of 3 out of 10 relative to bilateral IPJ; 2 out of 10 relative to volar surfaces of middle phalanx vs PIPJs bilaterally 2-5 digits; 1 out of 10 relative to dorsal DIPJs of L 3rd, 4th, and 5th digits and R 4th and 5th digits; and 2 out of 10 relative to dorsal DIPJs L 2nd digit and DIPJs R 2nd and 3rd digits. Ulnar rotation of distal phalanx at 2nd DIPJs bilaterally (R > L). Medial rotation distal phalanx at bilateral IPJs of thumbs. Beginning of hyperext at PIPJs of 3rd digits (R > L). 50 degrees active R thumb radial abduction vs 55 degrees active L thumb radial abduction. (+) thumb adductor tightness (R > L) noted w/ palpation. Dynamometer II Strength Testing Results = 35.0# of force R fisher hand line (compared to 60- 64 y.o. women mean 55.1 +/- 10 .1) vs 25.0# of force L fisher hand line ( compared to 60-64 y.o. women mean 45.7 +/- 10.1). Pinchometer Strength Testing Results = 12.0# of force R lateral bowens pinch (compared to 60-64 y.o. women mean 15.5 +/ - 2.7) vs 12.5# of force ( compared to 60-64 y.o. women mean 14.1 +/- 2.5); 7.0# of force R 3-jaw pinch (compared to 60-64 y.o. women mean 14.8 +/- 3.1) vs 7.5# of force L 3- jaw pinch (compared to 60-64 y .o. women mean 14.3 +/- 2.7); 5.5# of force R tip pinch ( compared to 60-64 y.o. women mean 10.1 +/- 2.1) vs 8.0# of force L tip pinch (compared to 60-64 y.o. women mean 9.9 +/- 2.0). No c/o or nonverbal signs of pain/discomfort w/ fisher hand line/pinch strength testing. Outpatient OT is recommended for joint protection education , development of gentle home strengthening program, discussion re: AE and/or compensatory strategies/ techniques, and to address conservative measures of pain/ discomfort/decreased flexibility (e.g., paraffin, heat). Recommend referral to [facility] for custom-made splint(s) as deemed appropriate by clinician (w/ consideration of bilateral 2nd DIPJ splints given joint deformities). Home Exercise Program 06/14/23 = Instructed in bilateral self-myofascial stretch; 20 sec hold -> switch repeat to address thumb adductor tightness w/ rec to execute daily/as needed. Instructed in gentle thumb ext strengthening w/ slight IPJ flexion w/ use of strip of TB# 1 vs rubberband and gentle thumb palmar abduction strengthening w/ use of strip of TB#1, 3 x 10 repetitions, 3 x a week vs every other day. Plan Length of treatment (weeks) 6 Plan of Care Start Date 06/14/23 Plan of Care End Date 07/26/23 Treatment Frequency Once a Week Therapeutic Contents Active Range of Motion, Adaptive Equipment Education, Client Education,Functional Activities,Home Exercise Program,Joint Protection, Manual Therapy,Education, Neurodevelopment Treatment, Neuromuscular Re-Education, Self-Care,Stretching/ Flexibility Activities, Therapeutic Activities, Therapeutic Exercises, Modalities Modalities As Needed,As Prescribed Additional Types of Modalities Heat/Ice/Paraffin Bath/ Ultrasound Other Suggested Referrals Referral to [facility] for custom- made orthotic/splint Functional Wrist/Hand Scan Hand Side Sensory Assessment Sensory Profile2 OT Outpatient Treatment Note - Adult Start: 06/14/23 12:22 Freq: Status: Active Protocol: Document 08/09/23 09:48 [facility] (Rec: 08/09/23 09:51 [facility] [id number]) OT Outpatient Adult Treatment Note Visit Information Plan of Care Dates 06/14/23 - 07/26/23 Insurance Information Prime; EVAL CHARGE ONLY; *Auth x 12 visits Setting Treatment Setting Outpatient Care Visit Type Note Type Discharge Summary General Information General Information Percy is a 63 year-old right hand dominant female referred to outpatient OT secondary to bilateral hand pain. Medical history is significant for arthritis, back pain, thyroid disorder. Denied any recent x- rays of hands. 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 She is using a prescribed ointment for pain management and tiger balm. She denied use of splints in the day time; she does use splints at night. - Subjective Observations Percy has not been seen by outpatient OT since 06/21/23, outpatient OT POC on 07/26/23, and 08/09/23 appointment was cancelled. Thus, recommend d/c from outpatient OT at this time and therapist to re-evaluate as deemed appropriate by PCP w/ receipt of new referral. - Objective Objective Measurements Please refer to below for progress towards meeting established OT goals: Retirement Goals D/C ALL GOALS 08/09/23 1. Percy will be modified independent with execution of home exercise program utilizing provided written and visual instructions as needed . 2. Percy will verbalize 100% understanding of basic joint protection principles referencing provided written/ visual materials as needed. 3. Percy will be able to verbally identify/have been education regarding 2 to 3 different conservative pain/ discomfort/range of motion techniques that she can utilize in the home (e. g., paraffin, heat). - - Assessment Assessment of Improvement Percy has not been seen by outpatient OT since 06/21/23, outpatient OT POC on 07/26/23, and 08/09/23 appointment was cancelled. Thus, recommend d/c from outpatient OT at this time and therapist to re-evaluate as deemed appropriate by PCP w/ receipt of new referral. - Plan Therapy Recommendations Discharge from Occupational Therapy
== END 2023-08-11 08:35 | disposition home or self-care (01) ==
LOC: OT 09:30
PROVIDERS: Family Provider Physician Assistant; PCP Physician Assistant; Referring Provider Physician Assistant; Visit Provider Physician Assistant
DX: M79.641 Pain in right hand (principal); M79.642 Pain in left hand
CPT/HCPCS: 97035; 97110; 97165

== ENCOUNTER → 2023-08-09 09:30 | Outpatient (CLI) | payer OTHER, SELFPAY ==
[2022-04-26 16:14] VITALS: BMI 24.3
[2022-04-29 05:45] VITALS: PULSE 69
[2022-04-29 08:48] VITALS: RESP 23; O2SAT 97
--- NOTE | 2023-08-09 09:31 | DI.MG.S_ITS ---
BILATERAL DIGITAL SCREENING MAMMOGRAM 3D/2D WITH CAD: 08/09/2023 CLINICAL: Routine screening. Family history of breast cancer. Comparison is made to exams dated: 07/23/2022 mammogram, 07/01/2021 mammogram, and 06/20/2020 mammogram - . Both breasts are heterogeneously dense, which may obscure small masses (category c / 51-75% glandular tissue). Current study was also evaluated with a Computer Aided Detection (CAD) system. There is a biopsy clip in the left breast. No significant masses, calcifications, or other findings are seen in either breast. There has been no significant interval change. IMPRESSION: NEGATIVE There is no mammographic evidence of malignancy. A 1 year screening mammogram is recommended. Based on the Tyrer Cuzick model (a risk assessment model) the patient's lifetime risk is 10.2% and her 10 year risk is 4.6%. According to the ACR, ACS, and NCCN guidelines, an annual breast MRI exam along with mammogram is recommended if the patient's lifetime risk is 20% or greater. This exam was interpreted at Station ID: [id number]. NOTE: For mammograms, a report in lay terms will be sent to the patient. Approximately 15% of breast malignancies will not be visualized mammographically. In the management of a palpable breast mass, a negative mammogram must not discourage biopsy of a clinically suspicious lesion. Electronically Signed By: Nadja mcpherson/bc:08/09/2023 13:42:50 letter sent: Normal Exam ACR BI-RADS Category 1: Negative 3341F
== END ==
LOC: MAMMO 09:31
PROVIDERS: Family Provider Physician Assistant; PCP Physician Assistant; Referring Provider Family Medicine; Visit Provider Family Medicine
DX: Z12.31 Encounter for screening mammogram for malignant neoplasm of breast (principal); R92.333 Mammographic heterogeneous density, bilateral breasts; Z80.3 Family history of malignant neoplasm of breast
CPT/HCPCS: 77063; 77067